=== PATIENT | female | born 1930 | race Caucasian/White ===

== ENCOUNTER 2017-04-19 12:53 | Inpatient (IN) | payer MEDICARE, OTHER ==
[~2017-04-19] VITALS: Ht 167.6 cm; Wt 54.5 kg
[2017-04-19 13:10] VITALS: BP 97/62
--- NOTE | 2017-04-19 13:27 | Consultation-Hospitalist ---
HPI History of Present Illness: HPI/Chief Complaint CC: Medical management following slow recovery after hip replacement surgery HPI: This is an 86-year-old white female who lives in [facility] but her daughter lives in [place] who underwent an uncomplicated elective hip replacement by Dr. Burks at [facility] on 04/15/17. I did see the patient in consultation that Thursday and she had an uncomplicated course except she had slow recovery. Her bowels are moving she is been maintained on her home medication and minimal medication for pain due to delirium that it causes. She did have slight hypotension with orthostasis the day after surgery and her hemoglobin did come back postoperatively low at 8.8 but she was placed on iron is currently doing well. Her primary care providers Dr. Adams in [facility]. Source: patient Exam Limitations: no limitations Date Seen 04/19/17 Attending Physician Eric Salas MD PCP No,Local Physician Referring Physician Date of Admission Apr 19, 2017 at 12:53 Home Medications & Allergies Home Medications Reviewed patient Home Medication Reconciliation Form Past [place]-Knfd[place]-Czsohg Hx Patient Social History Employed/Student: retired Smoking Status: Never a Smoker Recent Foreign Travel: No Contact w/other who traveled: No Surgeries Yes Abdominal (colon), Orthopedic Respiratory No Cardiovascular No Neurological No Genitourinary No Gastrointestinal Yes Diverticulosis Musculoskeletal Yes Arthritis Endocrine History of Endocrine Disorders: Yes Endocrine Disorders: Hypothyroidsim HEENT History of HEENT Disorders: No Cancer No Psychosocial History of Psychiatric Problem: No Review of Systems Constitutional: see HPI, weakness EENTM: no symptoms reported Respiratory: no symptoms reported Cardiovascular: no symptoms reported Gastrointestinal: no symptoms reported Genitourinary: no symptoms reported Musculoskeletal: joint pain Skin: no symptoms reported Psychiatric/Neurological: No Symptoms Reported All Other Systems Reviewed Negative Unless Noted: Yes Physical Exam Physical Exam Vital Signs Capillary Refill : General Appearance: No Apparent Distress, WD/WN, Chronically ill Eyes: Bilateral Eye Normal Inspection, Bilateral Eye PERRL HEENT: PERRL/EOMI, Normal ENT Inspection, Pharynx Normal Neck: Full Range of Motion, Normal Inspection, Non Tender, Supple, Carotid Bruit Respiratory: Chest Non Tender, Lungs Clear, Normal Breath Sounds, No Accessory Muscle Use, No Respiratory Distress Cardiovascular: Regular Rate, Rhythm, No Edema, No Gallop, No JVD, No Murmur, Normal Peripheral Pulses Gastrointestinal: Normal Bowel Sounds, No Organomegaly, No Pulsatile Mass, Non Tender, Soft Back: Normal Inspection, No CVA Tenderness, No Vertebral Tenderness Extremity: Normal Capillary Refill, Normal Inspection, Normal Range of Motion, Non Tender, No Calf Tenderness, No Pedal Edema Neurologic/Psychiatric: Alert, Oriented x3, No Motor/Sensory Deficits, Normal Mood/Affect Skin: Normal Color, Warm/Dry Lymphatic: No Adenopathy Assessment/Plan Admission Diagnosis Assessment: Slow recovery following uncomplicated hip replacement surgery by Dr. Burks POD # 4 Post operative anemia due to acute blood loss placed on PO iron Hypothyroidism History of diverticulosis status post partial resection in the past Delirium due to pain medication yesterday Assessment and Plan Plan: Minimized pain medication Reconcile all home meds PT/OT Fall risk Rehabilitation until recovery in order to return back to home in [facility] ENEIDA SUAZO DO Apr 19, 2017 13:27
[2017-04-19] MEDS ORDERED: HYDROcodone/APAP 5 MG/325 MG (LORTAB) TAB PO PRN (14:00)
[2017-04-19 16:30] VITALS: BP 97/62
[2017-04-19] MEDS: MELOXICAM 7.5 MG (MOBIC) TABLET PO SCH (20:44)
[2017-04-20 02:00] VITALS: BP 124/70
[2017-04-20] MEDS: MULTIVIT W/MINERALS TAB (THERAGRAN M) PO SCH (06:21)
[2017-04-20] MEDS: LEVOTHYROXINE 50 MCG (LEVOTHROID) TAB PO SCH (06:21)
[2017-04-20] MEDS: PANTOPRAZOLE 40 MG (PROTONIX) TAB PO SCH (06:21)
[2017-04-20] MEDS: MELOXICAM 7.5 MG (MOBIC) TABLET PO SCH ×2 (08:20→19:52)
[2017-04-20] MEDS: LACTOBACILLUS Acidoph/Bulgar (LACTINEX/FLORANEX) TAB PO SCH (08:20)
[2017-04-20] MEDS: FERROUS SULF 325 MG (IRON) TAB PO SCH (08:20)
[2017-04-20] MEDS: ASPIRIN E.C. 81 MG (ECOTRIN) TAB PO SCH (08:20)
[2017-04-20] MEDS: CALCIUM CARBONATE 500 MG (TUMS) TAB.CHEW PO SCH (08:20)
[2017-04-20] MEDS: ACETAMINOPHEN 500 MG TAB (TYLENOL) PO PRN ×2 (08:27→19:51)
--- NOTE | 2017-04-20 10:40 | Physical Therapy Evaluation ---
PT Evaluation-General Medical Diagnosis Admission Date Apr 19, 2017 at 12:53 Medical Diagnosis: L EMILY Onset Date: Apr 15, 2017 Therapy Diagnosis Therapy Diagnosis: Impaired strength, ROM, bed mobility, functional mobility Height/Weight Height (Feet): 5 Height (Inches): 6.00 Weight (Pounds): 119 Weight (Ounces): 1.0 Precautions Precautions/Isolations: Fall Prevention, Standard Precautions Anterior approach done for the EMILY Weight Bear Status Right Lower Extremity: Right Full Weight Bearing Left Lower Extremity: Left Full Weight Bearing Referral Physician: Josue Reason for Referral: Evaluation/Treatment Medical History Pertinent Medical History: Hypothroidism, OA Additional Medical History Diverticulitis Current History Pt underwent an elective left EMILY on 04/15/2017. Reviewed History: Yes Social History Home: Single Level Current Living Status: Alone Entry Into Home: Ramp PT Steps Into Home: 0 PT Steps Inside Home: 0 Once out of [facility], pt is planning to receive home therapy in [place] while she lives with her daughter. Prior/Core FIM Prior Level of Function Functional [place] Measure 0=Not Assessed/NA 4=Minimal Assistance 1=Total Assistance 5=Supervision or Setup 2=Maximal Assistance 6=Modified [place] 3=Moderate Assistance 7=Complete [place] Bed Mobility: 7 Transfers (B,C,W/C) (FIM): 7 Gait: 7 Locomotion: 7 Wheelchair Mobility: 7 Pt was active in the community and attended a wellness program regularly. PT Evaluation-Current Subjective Pt is sitting in chair pre tx with c/o of pain at L hip at 2/10 when not moving and 9/10 during initial steps. Pain Numeric Pain Scale: 9 Location: Left Location Body Site: Hip Pain Description: NONE Pt/Family Goals Move back to [place], [place] and become more mobile. Objective Patient Orientation: Person, Place, Time, Situation Problem Solving: Good Attachments: Other-See Comments Bandages for wound ROM/Strength ROM Lower Extremities Right WFL; Left WFL within hip precautions. Strenght Lower Extremities RLE: Grossly 4/5 LLE: Hip flexion 3/5, Knee flexion and extension 3/5, Ankle dorsiflexion 4/5 Integumentary/Posture Bowel Incontinence: No Bladder Incontinence: No Posture normal and symmetrical Neuromuscular (Tone, Coordination, Reflexes) NT Sensory Vision: Wears Glasses Hearing: Functional Sensation Right Lower Extremit: Intact Sensation Left Lower Extremity: Intact Sensation Lower Extremities Symmetrical Transfers Functional [place] Measure 0=Not Assessed/NA 4=Minimal Assistance 1=Total Assistance 5=Supervision or Setup 2=Maximal Assistance 6=Modified [place] 3=Moderate Assistance 7=Complete IndependenceIRFPAI Quality Coding Scale 6 Independent with activity with or without an assistive device 5 Patient requires set up or clean up by helper. Patient completes activity by themselves 4 Supervision or touching assist (CGA). [place] provide cues , steadying assist 3 The helper provides less than half the effort to complete the activity 2 The helper provides more than half the effort to complete the activity 1 Dependent. The helper does all the effort to complete an activity 7 Patient refused to complete or attempt activity 9 The patient did not perform the activity before the current illness or injury 88 Not attempted due to Medical conditions or safety concerns Transfers (B, C, W/C) (FIM): 4 Scootin Rollin Roll Left to Right (QC): 3 Supine to/from Sit: 4 Sit to/from Stand: 4 Sit to Lying (QC): 3 Lying to Sitting/Side of Bed(Q: 4 Sit to Stand (QC): 3 Chair/Wun-pi-Wwqip Xfer(QC): 3 Car Transfer (QC): 3 Pt requires manual handling of the LLE to abide by hip precautions as well as due to weakness and pain. During sit to stand transfer, pt LLE is moved in genu valgum causing hip adduction. Gait Does the Patient Walk?: Yes Mode of Locomotion: Walk Anticipated Mode of Locomotion: Walk Gait (FIM): 4 Distance (FIM): 3=150 ft Walk 10 feet (QC): 4 Walk 50 ft with 2 Turns(QC): 4 Walk 150 ft (QC): 4 Walking 10ft/uneven surface-QC: 4 Distance: 200 feet x1, 150 feet x2 Gait Level of Assist: 4 Gait Persons Needed: 1 Gait Assistive Device: FWW Comments/Gait Description Avoids weight bearing on the left with diminished WB during stance on the left. Slight rounded shoulders during gait. Wheelchair Training Does the Pt Use a Wheelchair?: No Stairs Stairs (FIM): 1 #of Steps: 1 Level of Assist: 4 1 Step (curb) (QC): 4 4 Steps (QC): 88 Assistive Device: Walker 12 Steps (QC): 88 Skilled cues for sequencing to go up/down the step. Balance Sitting Static: Good Sitting Dynamic: Good Standing Static: Good Standing Dynamic: Good Picking up an Object (QC): 88 Treatment Exercises in sitting include ankle pumps, heel slides, LAQ. Assessment/Needs Pt requires CGA during sit to stand transfer as well as for ambulation. Pt requires manual handling of the LLE during bed mobility. Pt demonstrates weakness throughout BLE. Pt will benefit from PT services to address the impairments mentioned. Rehab Potential: Good Equipment Needs FWW PT Short Term Goals Short Term Goals Time Frame: Apr 27, 2017 Transfers (B,C,W/C) (FIM): 5 Gait (FIM): 5 Gait Distance Comment: 200 feet Gait Level of Assist: 5 Gait Assistive Device: FWW Wheelchair (FIM): 9 Stairs (FIM): 5 # of Steps: 3 Stairs Level of Assist: 5 PT Fci Goals Data Designer Goals PT Fci Goals Time Frame: May 11, 2017 Transfers (B,C,W/C) (FIM): 6 Sit to Lying (QC): 6 Lying-Sitting on Side/Bed(QC): 6 Sit to Stand (QC): 6 Rollin Roll Left to Right (QC): 6 Chair/Eow-cc-Mqkii Xfer(QC): 6 Car Transfer (QC): 5 Does the Patient Walk: Yes Gait (FIM): 6 Gait distance (FIM): 3=150 ft Distance: 300 feet Walk 10 feet (QC): 6 Walk 10ft-Uneven Surface(QC): 5 Walk 50ft with 2 Turns (QC): 6 Walk 150 ft (QC): 6 Gait Level of Assist: 6 Gait Assistive Device: FWW Does the Pt use WC or Scooter?: No # of Steps: 4 1 Step (curb) (QC): 5 4 Steps (QC): 5 12 Steps (QC): 88 Stairs Level Of Assist: 6 Picking up an Object (QC): 5 PT Plan Problem List Problem List: Activity Tolerance, Functional Strength, Safety, Balance, Gait, Transfer, Bed Mobility, ROM Treatment/Plan Treatment Plan: Continue Plan of Care Treatment Plan: Bed Mobility, Concurrent Therapy, Education, Functional Activity Silvina, Functional Strength, Group Therapy, Gait, Safety, Therapeutic Exercise, Transfers Treatment Duration: May 11, 2017 Frequency: At least 5 of 7 days/Wk (IRF) Estimated Hrs Per Day: 1.5 hours per day Patient and/or Family Agrees t: Yes Safety Risks/Education Patient Education: Gait Training, Transfer Techniques, Steps, Reviewed Precautions, Correct Positioning, W/C Management, Disease Process, Safety Issues Teaching Recipient: Patient Teaching Methods: Demonstration, Discussion Response to Teaching: Verbalize Understanding, Return Demonstration, Reinforcement Needed Discharge Recommendations Therapy D/C Recommendations: Physical Therapy Home Care Time/GCodes Time In: 915 Time Out: 1030 Total Billed Treatment Time: 75 Total Billed Treatment 1 visit 45 min EVL 30 min FA JIMBO RAZO PT Apr 20, 2017 10:39
--- NOTE | 2017-04-20 12:57 | Occupational Therapy Eval ---
OT Evaluation-General/PLF Medical Diagnosis Admission Date Apr 19, 2017 at 12:53 Medical Diagnosis: L EMILY Onset Date: Apr 15, 2017 Therapy Diagnosis Therapy Diagnosis: decreased self care skills Height/Weight Height (Feet): 5 Height (Inches): 6.00 Weight (Pounds): 119 Weight (Ounces): 1.0 Precautions Precautions/Isolations: Fall Prevention, Standard Precautions Safety Interventions: None Medical History Pertinent Medical History: Arthritis, Hypothroidism, OA Additional Medical History diverticulosis, glaucoma Current History Pt s/p elective left EMILY Social History Home: Single Level Current Living Status: Alone Entry Into Home: Ramp Steps Into Home: 0 Steps Inside Home: 0 Pt lives in [place], [place], but at d/c with be staying with daughter in [place] for recovery. ADL-Prior Level of Function ADL PLOF Comments Pt reports being independent and active prior to surgery. Did not use any AD. DME/Equipment: Shower, Tub/Shower, Toilet/[address] Self: Yes OT Current Status Subjective Pt sitting in chair, agrees to therapy. Pt reports pain in left hip with movement, but does not rate. Mental Status/Objective Patient Orientation: Person, Place, Situation Current Glasses/Contacts: Yes Hearing Aids: No Dentures/Partials: No Hand Dominance: Right Upper Extremity ROM Grossly WFL Upper Extremity Coordination Intact Upper Extremity Sensation Intact per pt report ADL-Treatment ADL-Current Pt agrees to shower this morning. Sit to stand from chair with minimal assistance. Gait to restroom with FWW. Transfer to shower bench with minimal assistance and cues for safety. Pt doffed shirt with SBA. Minimal assistance to doff pants. Pt able to doff right sock, requires assist with left. Pt completed shower while seated on bench. Pt able to wash upper body, chip area, and bilateral upper legs. Stood with CGA while washing buttocks. Pt unable to wash left lower leg/foot without adaptive equipment. Don button up shirt with set up. Pt required assist to start underwear and pants over feet. Introduced to use of adaptive equipment for LE dressing. Stood with minimal assistance for balance during pant hike. Assist required for FRANCISCO hose. Pt assisted to don socks. Pt combed hair with set up. Declined to complete oral care at this time. Pt sitting in chair with needs met after session. Functional [place] Measure 0=Not Assessed/NA 4=Minimal Assistance 1=Total Assistance 5=Supervision or Setup 2=Maximal Assistance 6=Modified [place] 3=Moderate Assistance 7=Complete IndependenceIRFPAI Quality Coding Scale 6 Independent with activity with or without an assistive device 5 Patient requires set up or clean up by helper. Patient completes activity by themselves 4 Supervision or touching assist (CGA). [place] provide cues , steadying assist 3 The helper provides less than half the effort to complete the activity 2 The helper provides more than half the effort to complete the activity 1 Dependent. The helper does all the effort to complete an activity 7 Patient refused to complete or attempt activity 9 The patient did not perform the activity before the current illness or injury 88 Not attempted due to Medical conditions or safety concerns Grooming (FIM): 5 Bathing (FIM): 4 Shower/Bathe Self (QC): 3 Upper Body Dressing (FIM): 5 Upper Body Dressing (QC): 5 Lower Body Dressing (FIM): 3 Lower Body Dressing (QC): 3 On/Off Footwear (QC): 3 Toilet/Commode Transfer (FIM): 4 (per PT report) Toilet Transfer (QC): 3 Shower Transfer (FIM): 4 Education OT Patient Education: Rehab process Teaching Recipient: Patient Teaching Methods: Discussion Response to Teaching: Verbalize Understanding OT Short Term Goals Short Term Goals Time Frame: Apr 27, 2017 Lower Body Dressing(FIM): 5 Toileting(FIM): 5 Toilet/Commode Transfer(FIM): 5 1=Demonstrate adherence to instructed precautions during ADL tasks. 2=Patient will verbalize/demonstrate understanding of assistive devices/ modifications for ADL. 3=Patient will improve strength/tolerance for activity to enable patient to perform ADL's. OT Correction Goals Panel Assembler Goals Time Frame: May 11, 2017 Eating (FIM): 6 Eating (QC): 6 Groomin Oral Hygiene (QC): 6 Bathing(FIM): 5 Shower/Bathe Self (QC): 5 Upper Body Dressing(FIM): 6 Upper Body Dressing (QC): 6 Lower Body Dressing(FIM): 5 Lower Body Dressing (QC): 5 On/Off Footwear (QC): 5 Toileting(FIM): 6 Toileting Hygiene (QC): 6 Toilet/Commode Transfer(FIM): 6 Toilet/Commode Transfer (QC): 6 Shower Transfer(FIM): 5 Additional Goals: 1-Demonstrate ADL Tasks, 2-Verbalize Understanding, 3- ImproveStrength/Silvina 1=Demonstrate adherence to instructed precautions during ADL tasks. 2=Patient will verbalize/demonstrate understanding of assistive devices/ modifications for ADL. 3=Patient will improve strength/tolerance for activity to enable patient to perform ADL's. OT Education/Plan Problem List/Assessment Assessment: Decreased Activ Tolerance, Decreased UE Strength, Dependent Transfers, Impaired Self-Care Skills Pt s/p left EMILY with decreased mobility, ADL functioning, strength, and activity tolerance. Pt to benefit from skilled OT intervention for ADL training , transfers, strengthening, adaptive equipment training, and home safety education to maximize level of function and allow safe discharge. Discharge Recommendations Plan/Recommendations: Continue POC Treatment Plan/Plan of Care Treatment,Training & Education: Yes Patient would benefit from OT for education, treatment and training to promote independence in ADL's, mobility, safety and/or upper extremity function for ADL' s. Plan of Care: ADL Retraining, Functional Mobility, Group Exercise/Act as Ind, UE Funct Exercise/Act Treatment Duration: May 11, 2017 Frequency: At least 5 of 7 days/Wk (IRF) Estimated Hrs Per Day: 1.5 hours per day Agreement: Yes Rehab Potential: Good Time/GCodes Start Time: 10:30 Stop Time: 11:30 Total Time Billed (hr/min): 60 Billed Treatment Time 1 visit, EVL(15minutes), ADL(45minutes) FIDELINA NAVARRO OT Apr 20, 2017 12:57
--- NOTE | 2017-04-20 12:58 | PM&R Post Admission Assessment ---
Post Admission Physician Asses The preadmission screen agrees with the post admission assessment that the patient is a good candidate for inpatient rehabilitation. The patient will have a comprehensive program of inpatient rehabilitation with a goal of maximizing level of functional independence prior to discharge home with her daughter and HHC. The patient will have PT/OT ninety minutes per day , each discipline, five days a week for gait, strengthening, conditioning, balance, ADLs, any patient/family/caregiver training as necessary. Speech therapy to do cognitive assessment and treat as indicated. Rehabilitation nursing to assist with bowel, bladder, skin, wound care, medication administration, pain management. Dock Worker to assist with discharge planning, community reentry. SCD's for DVT prophylaxis. She appears to be well motivated to participate in three hours of therapy a day. She should be able to tolerate three hours of therapy a day from a medical and surgical standpoint. She should benefit from the three hours of therapy a day. She has a reasonable discharge plan, reasonable discharge rehabilitation goals and a supportive family. She has various comorbidities that need to be closely monitored with medications and treatments adjusted on a daily basis as needed. These include: [] Barriers to discharge for this patient who had been independent prior to this are for her to be modified independent to supervision for ADLs and mobility skills prior to discharge home with daughter and HHC, so as to lessen the burden of the caregivers. She is awidow and had been Independent prior to surgery but [facility] so she will be staying with her daughter upon discharge as she recovers further. Risks for this patient include: 1. Fall 2. Fracture 3. DVT 4. Pulmonary embolism 5. Wound infection 6. Skin breakdown 7. Contractures 8. Poorly controlled pain 9. Urinary retention 10. UTI 11. Respiratory infection 12. Aspiration 13. Worsening anemia Estimated Length of Stay: 14 days Prognosis: Rehab prognosis appears good for goal of discharge home with her daughter and HHC modified independent to supervision for ADLs and mobility skills. VALENCIA MCKINNEY MD Apr 20, 2017 12:58
[2017-04-20] MEDS ORDERED: DOCU-143 PO (14:14)
[2017-04-20] MEDS ORDERED: MULT-35 PO (14:14)
[2017-04-20] MEDS ORDERED: CINN500C2 PO (14:14)
[2017-04-20] MEDS ORDERED: FERR143T PO (14:14)
[2017-04-20] MEDS ORDERED: METH500T47 PO (14:14)
[2017-04-20] MEDS ORDERED: LEVO50TA6 PO (14:14)
[2017-04-20] MEDS ORDERED: NFBIOT1000 PO (14:14)
[2017-04-20] MEDS ORDERED: CALC500T3 PO (14:14)
[2017-04-20] MEDS ORDERED: ASPI-983 PO (14:14)
[2017-04-20] MEDS ORDERED: LACT1CAP72 PO (14:14)
--- NOTE | 2017-04-20 15:23 | Therapy Group Daily Note ---
Therapy Daily Group Note Exercises LE Seated Exercise, UE Exercise Other/Notes Pt. participated in group therapy this PM which consisted of introduction of self to the group and upper and lower extremity exercises x 10 reps of 12 exercises. Pt. read instructions for a specific exercise aloud and led the group in the exercise. Pt activitely participate with therapy and was interactive. She was given 1 specific exercise to lead, she was able to read the instruction and demonstrate to the group and then count out the repetitions for performing. Pt seemed to enjoy tthe social interaction. Pt ambulated to/ from group with FWW with CGA for safety; approximately 125 ft each direction. Pt was up in her chair post treatment with needs met. Start Time: 12:50 Stop Time: 13:50 Total Billed Treatment Time: 60 Total Billed Treatment visit GRP 60 JIMBO RAZO PT Apr 20, 2017 15:23
--- NOTE | 2017-04-20 16:50 | HISTORY AND PHYSICAL ---
DATE OF SERVICE: ADMISSION HISTORY AND PHYSICAL CHIEF COMPLAINT: Difficulty with walking. 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 Burks at [facility] on 04/15/2017. She has stairs in her apartment in [place] and decided to have surgery here, so she could stay with one of her five children as she recuperates. Postoperatively, she progressed slowly, had slight hypotension and orthostasis and some confusion, mild postoperative anemia,placed on iron replacement. She was referred to inpatient rehabilitation at [facility]. Currently, she is min assist for ambulation short distances with a front wheel walker, min assist for transfers and bed mobility. She is modified independent for eating, set up for grooming, min assist for upper body dressing, max assist for lower body dressing, mod assist for toilet transfers and toileting. PAST MEDICAL HISTORY: Hypothyroidism, arthritis. PAST SURGICAL HISTORY: No prior joint or spine surgeries. ALLERGIES: PENICILLIN, CIPRO, CLINDAMYCIN. FAMILY HISTORY: Noncontributory. SOCIAL HISTORY: She is a . She has lived in [place] for the past few years, [place]. Her is . She taught school for several years. She has 5 children. She has been independent prior to this. REVIEW OF SYSTEMS: Ten-point review of systems is significant for a rash, which the patient relates to receiving some penicillin at an outside facility. It is nonpruritic hip pain. MEDICATIONS: ASA 81 mg p.o. daily, Lactinex 1 tablet p.o. daily, calcium carbonate 1000 mg p.o. daily, ferrous sulfate 325 mg p.o. on Thursday, Thursday and Thursday, multivitamins with minerals 1 tablet p.o. daily, Protonix 40 mg p.o. daily, levothyroxine 50 mcg p.o. daily, Meloxicam 7.5 mg p.o. b.i.d., Colace 100 mg p.o. daily p.r.n. constipation, Lortab 5 two tablets p.o. q.4 hours p.r.n. moderate pain, Tylenol 500 mg p.o. q.6 hours p.r.n. mild pain. PHYSICAL EXAMINATION: GENERAL: Significant for a pleasant female appearing her stated age, sitting in a chair in no acute distress. VITAL SIGNS: Blood pressure 124/70, respirations 16, pulse of 92 and regular, she is afebrile, O2 sat 98% on room air. HEENT: Vision, speech and hearing grossly intact. No oral lesion is noted. NECK: Supple without mass. HEART: Regular rhythm. CHEST: Clear. ABDOMEN: Soft, nontender, bowel sounds present. EXTREMITIES: No lower leg edema, no calf tenderness. MUSCULOSKELETAL: She has functional active range of motion in both upper extremities and right lower extremity. Left lower extremity limited due to recent surgery. NEUROLOGIC: Cognition intact. Sensation grossly intact to touch. Strength in both upper limbs 4/5, right lower extremity 4/5, left lower extremity hip flexion 3/5 as well as knee flexion and extension, ankle dorsiflexion 4/5. IMPRESSION: 1. Ambulatory dysfunction secondary to degenerative joint disease of the left hip status post left total hip replacement at [facility], Dr. Burks on 04/15/2017. 2. Postoperative anemia, on replacement. 3. Postoperative mild hypotension, orthostasis resolved. 4. Hypothyroidism, on replacement. 5. Truncal rash nonpruritic PLAN: The patient will have a comprehensive program with inpatient rehabilitation with a goal of maximizing level of functional independence prior to discharge home with her daughter and home health care. The patient will have PT, OT 90 minutes per day each discipline, 5 days a week for gait, strengthening, conditioning ADLs, any patient and family caregiver training necessary, adaptive equipment and training as necessary. Rehabilitation nursing to assist with bowel, bladder, skin care, wound care, medication administration, pain management. Social service to assist with discharge planning, community reentry. Follow up with Dr. Smith in lieu of her PCP in [place], [place]. I appreciate Dr. Smith's consult. Follow up with Dr. Burks pfelipe.Topical care for rash as needed. ESTIMATED LENGTH OF STAY: Two weeks. PROGNOSIS: Rehab prognosis appears good for goal of discharging home with daughter, modified independent supervision for ADLs and mobility skills. DIET: Regular. CODE STATUS: Full code. Job ID: [id number] DocumentID: [id number] Dictated Date: 04/20/2017 13:17:07 General Lithographic Worker Date: 04/20/2017 15:44:56 Dictated By: VALENCIA MCKINNEY MD [facility]
[2017-04-20 17:33] VITALS: BP 103/64
[2017-04-21] MEDS: PANTOPRAZOLE 40 MG (PROTONIX) TAB PO SCH (05:14)
[2017-04-21] MEDS: LEVOTHYROXINE 50 MCG (LEVOTHROID) TAB PO SCH (05:14)
[2017-04-21] MEDS: MULTIVIT W/MINERALS TAB (THERAGRAN M) PO SCH (05:14)
[2017-04-21 06:19] VITALS: BP 145/70
[2017-04-21] MEDS: MELOXICAM 7.5 MG (MOBIC) TABLET PO SCH ×2 (08:17→20:36)
[2017-04-21] MEDS: CALCIUM CARBONATE 500 MG (TUMS) TAB.CHEW PO SCH (08:17)
[2017-04-21] MEDS: ASPIRIN E.C. 81 MG (ECOTRIN) TAB PO SCH (08:17)
[2017-04-21] MEDS: LACTOBACILLUS Acidoph/Bulgar (LACTINEX/FLORANEX) TAB PO SCH (08:17)
[2017-04-21] MEDS: ACETAMINOPHEN 500 MG TAB (TYLENOL) PO PRN ×2 (08:18→18:24)
--- NOTE | 2017-04-21 09:19 | ST Cognitive Linguistic Eval ---
Speech Evaluation-General Medical Diagnosis L EMILY Onset Date: Apr 15, 2017 Therapy Diagnosis Therapy Diagnosis: Cognitive Linguistic Skills WNL Precautions Precautions/Isolations: Fall Prevention, Standard Precautions Referral Referring Physician: Dr. Eric Salas Reason for Referral: Evaluation/Treatment Cognitive Evaluation Medical History Pertinent Medical History: Hypothroidism, OA Reviewed History: Yes Social History Current Living Status: Alone Speech PLF-Current Status Prior Level of Function The patient denied prior challenges with speech, language, or cognition. Subjective The patient was recently admitted to [facility] following a left total hip replacement. The patient greeted the clinician appropriately and was agreeable to participation in the cognitive evaluation. Language Eval: Auditory Comprehends Simple Yes/No Ques: Functional Indent/Objects Multiple Gomez: Functional Ident/Pics in Multiple Gomez: Functional Follows 1-Step Commands: Functional Follows Complex Directions: Functional Follows General Conversations: Functional Language Eval: Verbal Language Completes Spontaneous Greeting: Functional Produces Auto, Serial Info: Functional Imitates Simple Words/Phrases: Functional Word Finding: Functional Requests Basic Needs: Functional States Basic Personal Info: Functional Expresses Complex Ideas: Functional Cognitive Patient Orientation The patient was independently oriented to self, location, month, day of week, and year. Objective Cognitive Domain Attention: WNL Memory: WNL Problem Solving: Functional Objective Impression The patient demonstrated cognitive linguistic skills WNL and appropriate for completion of ADL's. Communication/Social Cognition Comprehension: 6 Expression: 6 Social Interaction: 6 Problem Solvin Memory: 6 Speech Patient Assess Expression of Ideas/Wants: Expression (4) Understanding Vebal Content: Understands (4) Brief Interview-Mental Status: Yes Repetition of Three Words: Three (3) Temporal Orientation: Year: Correct (3) Temporal Orientation: Month: Accurate within 5 days(2) Temporal Orientation: Day: Correct (1) Recall : Wear to say "Sock": Yes,after cueing (1) Recall : Color: Yes, no cue required (2) Recall : Bed: Yes, no cue required (2) Speech-Plan Treatment Plan Speech Therapy Treatment Plan: Discontinue ST Evaluation, only. Frequency: Modified Program (IRF) Estimated Hrs Per Day: Other Rehab Potential: Good Safety Risks/Education Teaching Recipient: Patient Teaching Methods: Discussion Response to Teaching: Verbalize Understanding Education Topics Provided: Results, Recommendations, Plan of Care Time Speech Therapy Time In: 09:00 Speech Therapy Time Out: 09:15 Total Billed Time: 15 Billed Treatment Time 1, BETHNDISAEL PRITCHARD Apr 21, 2017 09:19
--- NOTE | 2017-04-21 10:29 | Physical Therapy Daily Note ---
PT Daily Note-Current Subjective Agreeable to PT. "I slept like a rock last night." Pain Numeric Pain Scale: 5-Moderate Pain Location: Left Location Body Site: Hip Pain Description: Ache Comment: with activity; at rest, she rates at a 2 Mental Status Patient Orientation: Person, Place, Time, Situation Transfers Functional [place] Measure 0=Not Assessed/NA 4=Minimal Assistance 1=Total Assistance 5=Supervision or Setup 2=Maximal Assistance 6=Modified [place] 3=Moderate Assistance 7=Complete IndependenceIRFPAI Quality Coding Scale 6 Independent with activity with or without an assistive device 5 Patient requires set up or clean up by helper. Patient completes activity by themselves 4 Supervision or touching assist (CGA). [place] provide cues , steadying assist 3 The helper provides less than half the effort to complete the activity 2 The helper provides more than half the effort to complete the activity 1 Dependent. The helper does all the effort to complete an activity 7 Patient refused to complete or attempt activity 9 The patient did not perform the activity before the current illness or injury 88 Not attempted due to Medical conditions or safety concerns Transfers (B, C, W/C) (FIM): 4 Supine to/from Sit: 4 Sit to/from Stand: 4 (skilled cues for hand placement) Sit to Lying (QC): 4 (assist with the left leg) Sit to Stand (QC): 4 Chair/[id number] Xfer(QC): 4 Sit to stand transfer improved during course of treatment to a SBA level. Sit to stand repetition transfer x 5. Weight Bearing Right Lower Extremity: Right Full Weight Bearing Left Lower Extremity: Left Full Weight Bearing Gait Training Does the Patient Walk?: Yes Gait (FIM): 4 Distance (FIM): 3=150 ft Distance: 150 ft x 2; 50 ft x 3 Gait Assistive Device: FWW slow gait with diminished stance time on the left due to some pain with WB Stair Training Stairs (FIM): 2 #of Steps: 4 4 Steps (QC): 4 Stairs: Pattern: Step to SB-CGA on stairs with skills cues on sequencing with education on the rationale behind the sequence. Exercises Supine Ex: Bridging, Ankle pumps, Quad Set, Heel Slides, Short Arc Quads, Hip abd/add Supine Reps: 12 (to facilitate LE strength and ROM for gait, transfers and bed mobility.) Seated Therapy Exercises: Ankle pumps, Long arc quads Seated Reps: 12 Treatments Pt also toileted; required SB-CGA with toilet transfer and able to perform pericare without assist. Pt up in chair post treatment with needs met. Assessment Current Status: Good Progress Transfers improving and gait distance increased. Did well on the stairs today. PT Short Term Goals Short Term Goals Time Frame: Apr 27, 2017 Gait (FIM): 5 Gait Distance Comment: 200 feet Gait Level of Assist: 5 Gait Assistive Device: FWW Wheelchair (FIM): 9 Stairs (FIM): 5 # of Steps: 3 Stairs Level of Assist: 5 PT Mcfp Goals Mcfp Goals PT Mcfp Goals Time Frame: May 11, 2017 Transfers (B,C,W/C) (FIM): 6 Sit to Lying (QC): 6 Lying-Sitting on Side/Bed(QC): 6 Sit to Stand (QC): 6 Rollin Roll Left to Right (QC): 6 Chair/Cmo-qw-Khhvb Xfer(QC): 6 Car Transfer (QC): 5 Does the Patient Walk: Yes Gait (FIM): 6 Gait distance (FIM): 3=150 ft Distance: 300 feet Walk 10 feet (QC): 6 Walk 10ft-Uneven Surface(QC): 5 Walk 50ft with 2 Turns (QC): 6 Walk 150 ft (QC): 6 Gait Level of Assist: 6 Gait Assistive Device: FWW Does the Pt use WC or Scooter?: No # of Steps: 4 1 Step (curb) (QC): 5 4 Steps (QC): 5 12 Steps (QC): 88 Stairs Level Of Assist: 6 Picking up an Object (QC): 5 PT Plan Problem List Problem List: Activity Tolerance, Functional Strength, Safety, Balance, Gait, Transfer, Bed Mobility Treatment/Plan Treatment Plan: Continue Plan of Care Treatment Plan: Bed Mobility, Concurrent Therapy, Education, Functional Activity Silvina, Functional Strength, Group Therapy, Gait, Safety, Therapeutic Exercise, Transfers Treatment Duration: May 11, 2017 Frequency: At least 5 of 7 days/Wk (IRF) Estimated Hrs Per Day: 1.5 hours per day Patient and/or Family Agrees t: Yes Safety Risks/Education Patient Education: Transfer Techniques, Steps Teaching Recipient: Patient Teaching Methods: Demonstration, Discussion Response to Teaching: Return Demonstration Discharge Recommendations Therapy D/C Recommendations: Physical Therapy Home Care Time/GCodes Time In: 915 Time Out: 1016 Total Billed Treatment Time: 61 Total Billed Treatment visit GT 28 EX 22 FA 11 JIMBO RAZO PT Apr 21, 2017 10:29
--- NOTE | 2017-04-21 10:58 | PM & R (SOAP) Progress Note ---
Subjective Time Seen by Provider: 08:10 Subjective/Events-last exam Patient was seen in her room this AM Patient Min assist for transfers Progressing well with therapies Review of Systems Musculoskeletal: leg pain Objective Exam Last Set of Vital Signs Vital Signs Date Time Temp Pulse Resp B/P (MAP) Pulse Ox O2 Delivery O2 Flow Rate FiO2 04/21/17 06:19 97.8 92 17 145/70 (95) 95 Room Air Capillary Refill : Less Than 3 Seconds I&O Intake and Output 04/20/17 23:59 Intake Total 1280 ml Balance 1280 ml Intake Oral 1280 ml # Voids 7 # Bowel Movements 2 General: Alert, Oriented X3, Cooperative, No Acute Distress HEENT: Atraumatic, PERRLA, EOMI, Mucous Memb Moist/[place] Neck: Supple Lungs: Clear to Auscultation Heart: Regular Rate Abdomen: Normal Bowel Sounds, Soft, No Tenderness Extremities: No Edema Neuro: Other (Good strength except left hip Sensation and Cognition grossly intact) Assessment/Plan Assessment DJD left hip s/p Left THR DR Burks WBAT Postop anemia on replacement Hypothyroidism on replacement Truncal rash non pruritic Plan Continue PT/OT Team Conference tomorrow 04-22-17 VALENCIA MCKINNEY MD Apr 21, 2017 10:58
--- NOTE | 2017-04-21 11:04 | Individualized Plan of Care ---
Individualized Plan of Care Rehab Nursing IPOC Order Admission Date Apr 19, 2017 at 12:53 Current Orders Orders Admission (Physician Order) (04/19/17 13:48) Code/Resuscitation (04/19/17 13:48) Initiate Admission Nursing Pro .admission (04/19/17 13:48) Isolation Central Supply Req (04/19/17 13:48) Aspirin Enteric Coated Tablet (Ecotrin T (04/20/17 09:00) Levothyroxine Tablet (Synthroid Tablet) (04/20/17 06:30) Lactobacillus/Bulgaricus Tab (Lactinex (04/20/17 09:00) Docusate Sodium Capsule (Colace Capsule) (04/19/17 14:00) Therapeutic Multivitamin Tab (Vitamins, (04/20/17 07:00) Calcium Carbonate Chew Tablet (Antacid C (04/20/17 09:00) Meloxicam Tablet (Mobic Tablet) (04/19/17 21:00) Pantoprazole Tablet (Protonix Tablet) (04/20/17 07:00) Hydrocodone/Apap 5/325 Tablet (Lortab 5 (04/19/17 14:00) Acetaminophen Tablet (Tylenol Tablet) (04/19/17 14:00) Physical Therapy [place]der (04/19/17 13:49) Occupational Therapy Order (04/19/17 13:49) Consult Physician (04/19/17 13:49) General/Regular (04/19/17 Dinner) Ambulate TID (04/19/17 18:57) Sequential Compression Device 08,20 (04/19/17 18:57) Dvt/Vte Risk - Notifiy Physici (04/19/17 18:57) Ferrous Sulfate Tablet (Feosol Tablet) (04/20/17 09:00) Follow-Up Appointment (04/19/17 19:58) Nursing Communication (Patient (04/19/17 19:59) Nursing Communication (Patient (04/19/17 20:01) Request For Cognitive Services (04/20/17 10:24) Patient Visit (04/20/17 ) Pt Eval Low Complexity (04/20/17 ) Functional Activities, Ea 15 (04/20/17 ) Patient Visit (04/20/17 ) Therapeutic, Group (04/20/17 ) Patient Visit (04/21/17 ) Speech Sound Lang Comp (04/21/17 ) Other Nursing Orders: Monitor for postop urinary retention and constipation PT IPOC Problem List: Activity Tolerance, Functional Strength, Safety, Balance, Gait, Transfer, Bed Mobility Treatment Plan: Continue Plan of Care Bed Mobility, Concurrent Therapy, Education, Functional Activity Silvina, Functional Strength, Group Therapy, Gait, Safety, Therapeutic Exercise, Transfers Treatment Duration: May 11, 2017 Frequency: At least 5 of 7 days/Wk (IRF) Estimated Hrs Per Day: 1.5 hours per day OT IPOC Problems: Decreased Activ Tolerance, Decreased UE Strength, Dependent Transfers , Impaired Self-Care Skills OT Treatment, Training and Edu: Yes OT Problems Pt s/p left EMILY with decreased mobility, ADL functioning, strength, and activity tolerance. Pt to benefit from skilled OT intervention for ADL training , transfers, strengthening, adaptive equipment training, and home safety education to maximize level of function and allow safe discharge. Plan of Care: ADL Retraining, Functional Mobility, Group Exercise/Act as Ind, UE Funct Exercise/Act Treatment Duration: May 11, 2017 Frequency: At least 5 of 7 days/Wk (IRF) Estimated Hrs Per Day: 1.[address] IPOC Speech Therapy Treatment Plan: Discontinue ST Treatment Duration: Apr 21, 2017 Frequency: Modified Program (IRF) Estimated Hrs Per Day: Other Analytics Analyst/Case Mgmt Analytics Analyst/Case Managemen: Discharge Planning, Patient/Family Counseling Physician IPOC Medical Issues being managed closely and that require the 24 hour availability of a physician:postop anemia psstop hypotension pain management Medical Issues: Bowel/Bladder Function, DVT Prophylaxis, Falls Precautions, Fluid/Electrolyte/Nutrition Balance, Infection Protection, Pain Management, Wound Care, Other (List) (as per above) Brief Synthesis of Preadmission Screen, Post-Admission Evaluation, and Therapy Evaluations: 86 yo female who had been living alone independently who had THR for painful DJD refractory to conservative care,Referred to IRU for ongoing care and therapies Lives in [place] but has stairs there and came here to be near her daughter upon discharge where she will go to live with temporarily upon discharge from Rehab [facility] CODE 08.51 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
--- NOTE | 2017-04-21 11:38 | Occupational Ther Daily Note ---
OT Current Status-Daily Note Subjective Pt sitting in chair, agrees to treatment. Pt reports 6/10 pain in left hip. Mental Status/Objective Functional [place] Measure 0=Not Assessed/NA 4=Minimal Assistance 1=Total Assistance 5=Supervision or Setup 2=Maximal Assistance 6=Modified [place] 3=Moderate Assistance 7=Complete [place] ADL-Treatment Pt declined to bathe today, but agrees to change clothes. Pt doffed/donned shirt with set up. Pt doffed underwear and pants with minimal assistance, uses dressing stick to push off over feet. Pt instructed in use of adaptive equipment for LE dressing. Pt donned pants with minimal assistance using home day care provider. Stood with CGA for pant hike. Pt donned two pairs of pants, but stated they were too tight, so she put pajama pants back on. Pt donned socks with SBA using sock aid. Increased time for dressing tasks. Sit to stand with CGA. Gait to restroom with FWW. Pt transferred to [facility] over toilet with SBA. Pt able to manage toileting hygiene, requires CGA for balance during clothing management. Stood at sink to wash hands and brush teeth with SBA. Pt combed hair after set up while seated in chair. Pt fatigues with activity and requires occasional rest breaks throughout treatment. Pt sitting in chair with needs met after session. Functional [place] Measure 0=Not Assessed/NA 4=Minimal Assistance 1=Total Assistance 5=Supervision or Setup 2=Maximal Assistance 6=Modified [place] 3=Moderate Assistance 7=Complete IndependenceIRFPAI Quality Coding Scale 6 Independent with activity with or without an assistive device 5 Patient requires set up or clean up by helper. Patient completes activity by themselves 4 Supervision or touching assist (CGA). [place] provide cues , steadying assist 3 The helper provides less than half the effort to complete the activity 2 The helper provides more than half the effort to complete the activity 1 Dependent. The helper does all the effort to complete an activity 7 Patient refused to complete or attempt activity 9 The patient did not perform the activity before the current illness or injury 88 Not attempted due to Medical conditions or safety concerns Grooming (FIM): 5 Oral Hygiene (QC): 4 Upper Body (FIM): 5 Upper Body Dressing (QC): 5 Lower Body Dressing (FIM): 4 Lower Body Dressing (QC): 3 On/Off Footwear (QC): 4 Toileting (FIM): 4 (CGA) Toileting Hygiene (QC): 4 (CGA) Toilet/Commode Transfer (FIM): 4 (CGA) Toilet Transfer (QC): 4 (CGA) Education OT Patient Education: Modified ADL techniques Teaching Recipient: Patient Teaching Methods: Demonstration, Discussion Response to Teaching: Return Demonstration OT Short Term Goals Short Term Goals Time Frame: Apr 27, 2017 Lower Body Dressing(FIM): 5 Toileting(FIM): 5 Toilet/Commode Transfer(FIM): 5 1=Demonstrate adherence to instructed precautions during ADL tasks. 2=Patient will verbalize/demonstrate understanding of assistive devices/ modifications for ADL. 3=Patient will improve strength/tolerance for activity to enable patient to perform ADL's. OT Ware Finisher Goals Ware Finisher Goals Time Frame: May 11, 2017 Eating (FIM): 6 Eating (QC): 6 Groomin Oral Hygiene (QC): 6 Bathing(FIM): 5 Shower/Bathe Self (QC): 5 Upper Body Dressing(FIM): 6 Upper Body Dressing (QC): 6 Lower Body Dressing(FIM): 5 Lower Body Dressing (QC): 5 On/Off Footwear (QC): 5 Toileting(FIM): 6 Toileting Hygiene (QC): 6 Toilet/Commode Transfer(FIM): 6 Toilet/Commode Transfer (QC): 6 Shower Transfer(FIM): 5 Additional Goals: 1-Demonstrate ADL Tasks, 2-Verbalize Understanding, 3- ImproveStrength/Silvina 1=Demonstrate adherence to instructed precautions during ADL tasks. 2=Patient will verbalize/demonstrate understanding of assistive devices/ modifications for ADL. 3=Patient will improve strength/tolerance for activity to enable patient to perform ADL's. OT Education/Plan Discharge Recommendations Plan/Recommendations: Continue POC Treatment Plan/Plan of Care Patient would benefit from OT for education, treatment and training to promote independence in ADL's, mobility, safety and/or upper extremity function for ADL' s. Plan of Care: ADL Retraining, Functional Mobility, Group Exercise/Act as Ind, UE Funct Exercise/Act Treatment Duration: May 11, 2017 Frequency: At least 5 of 7 days/Wk (IRF) Estimated Hrs Per Day: 1.5 hours per day Agreement: Yes Rehab Potential: Good Time/GCodes Start Time: 08:00 Stop Time: 09:00 Total Time Billed (hr/min): 60 Billed Treatment Time 1 visit, ADLx4(60minutes) FIDELINA NAVARRO OT Apr 21, 2017 11:38
--- NOTE | 2017-04-21 14:09 | Physical Therapy Daily Note ---
PT Daily Note-Current Subjective Patient c/o "stiffness" of left thigh. Agrees to PT. Pain Numeric Pain Scale: 5-Moderate Pain Location: Left Location Body Site: Thigh Pain Description: Ache, Acute Mental Status Patient Orientation: Normal For Age Transfers Functional [place] Measure 0=Not Assessed/NA 4=Minimal Assistance 1=Total Assistance 5=Supervision or Setup 2=Maximal Assistance 6=Modified [place] 3=Moderate Assistance 7=Complete IndependenceIRFPAI Quality Coding Scale 6 Independent with activity with or without an assistive device 5 Patient requires set up or clean up by helper. Patient completes activity by themselves 4 Supervision or touching assist (CGA). [place] provide cues , steadying assist 3 The helper provides less than half the effort to complete the activity 2 The helper provides more than half the effort to complete the activity 1 Dependent. The helper does all the effort to complete an activity 7 Patient refused to complete or attempt activity 9 The patient did not perform the activity before the current illness or injury 88 Not attempted due to Medical conditions or safety concerns Transfers (B, C, W/C) (FIM): 5 Scootin Sit to/from Stand: 5 Sit to Stand (QC): 5 Weight Bearing Right Lower Extremity: Right Full Weight Bearing Left Lower Extremity: Left Full Weight Bearing Gait Training Does the Patient Walk?: Yes Gait (FIM): 5 Distance (FIM): 3=150 ft Distance: 150' x 3 Walk 10 feet (QC): 5 Walk 50 ft with 2 Turns(QC): 5 Walk 150 ft (QC): 5 Gait Level of Assist: 5 Gait Assistive Device: FWW decreased step length, antalgic/encouraged patient to perform reciprocal pattern with gait and increase leroy Exercises Seated Therapy Exercises: Ankle pumps, Long arc quads Seated Reps: 20 Standing: Heel/toe raises Standing Reps: 20 Assessment Patient tolerated treatment well and is up in recliner with needs met. PT will increase activity as tolerated by patient. Education with patient on "normalizing" gait pattern and performing exercises PRN independently to improve strength and mobility. PT Short Term Goals Short Term Goals Time Frame: Apr 27, 2017 Gait (FIM): 5 Gait Distance Comment: 200 feet Gait Level of Assist: 5 Gait Assistive Device: FWW Wheelchair (FIM): 9 Stairs (FIM): 5 # of Steps: 3 Stairs Level of Assist: 5 PT Jail Goals Parts Processor Goals PT Parts Processor Goals Time Frame: May 11, 2017 Transfers (B,C,W/C) (FIM): 6 Sit to Lying (QC): 6 Lying-Sitting on Side/Bed(QC): 6 Sit to Stand (QC): 6 Rollin Roll Left to Right (QC): 6 Chair/Obf-fd-Xhlua Xfer(QC): 6 Car Transfer (QC): 5 Does the Patient Walk: Yes Gait (FIM): 6 Gait distance (FIM): 3=150 ft Distance: 300 feet Walk 10 feet (QC): 6 Walk 10ft-Uneven Surface(QC): 5 Walk 50ft with 2 Turns (QC): 6 Walk 150 ft (QC): 6 Gait Level of Assist: 6 Gait Assistive Device: FWW Does the Pt use WC or Scooter?: No # of Steps: 4 1 Step (curb) (QC): 5 4 Steps (QC): 5 12 Steps (QC): 88 Stairs Level Of Assist: 6 Picking up an Object (QC): 5 PT Plan Treatment/Plan Treatment Plan: Continue Plan of Care Treatment Plan: Bed Mobility, Concurrent Therapy, Education, Functional Activity Silvina, Functional Strength, Group Therapy, Gait, Safety, Therapeutic Exercise, Transfers Treatment Duration: May 11, 2017 Frequency: At least 5 of 7 days/Wk (IRF) Estimated Hrs Per Day: 1.5 hours per day Patient and/or Family Agrees t: Yes Time/GCodes Time In: 1330 Time Out: 1400 Total Billed Treatment Time: 30 Total Billed Treatment 1 visit EX 14 min GT 16 min KENDRA COLEMAN PT Apr 21, 2017 14:09
--- NOTE | 2017-04-21 14:42 | Occupational Ther Daily Note ---
OT Current Status-Daily Note Subjective Pt sitting in chair, agrees to treatment. Mental Status/Objective Functional [place] Measure 0=Not Assessed/NA 4=Minimal Assistance 1=Total Assistance 5=Supervision or Setup 2=Maximal Assistance 6=Modified [place] 3=Moderate Assistance 7=Complete [place] ADL-Treatment Functional [place] Measure 0=Not Assessed/NA 4=Minimal Assistance 1=Total Assistance 5=Supervision or Setup 2=Maximal Assistance 6=Modified [place] 3=Moderate Assistance 7=Complete IndependenceIRFPAI Quality Coding Scale 6 Independent with activity with or without an assistive device 5 Patient requires set up or clean up by helper. Patient completes activity by themselves 4 Supervision or touching assist (CGA). [place] provide cues , steadying assist 3 The helper provides less than half the effort to complete the activity 2 The helper provides more than half the effort to complete the activity 1 Dependent. The helper does all the effort to complete an activity 7 Patient refused to complete or attempt activity 9 The patient did not perform the activity before the current illness or injury 88 Not attempted due to Medical conditions or safety concerns Other Treatment Pt sit to stand with SBA. Gait to therapy gym with FWW. Arm bike [id number] to increase overall strength and activity tolerance needed for functional tasks. Pt completed task with moderate resistance and steady pace. No rest breaks needed. Pt performed bilateral UE exercises to increase strength needed for ADLs and transfers. Pt performed shoulder flexion, forward press, biceps curls, and wrist flex/ext x10 reps with 1# dowel catina. Rest breaks between exercises. Pt in gym for PT treatment after session. OT Short Term Goals Short Term Goals Time Frame: Apr 27, 2017 Lower Body Dressing(FIM): 5 Toileting(FIM): 5 Toilet/Commode Transfer(FIM): 5 1=Demonstrate adherence to instructed precautions during ADL tasks. 2=Patient will verbalize/demonstrate understanding of assistive devices/ modifications for ADL. 3=Patient will improve strength/tolerance for activity to enable patient to perform ADL's. OT Pbx Manager Goals Pbx Manager Goals Time Frame: May 11, 2017 Eating (FIM): 6 Eating (QC): 6 Groomin Oral Hygiene (QC): 6 Bathing(FIM): 5 Shower/Bathe Self (QC): 5 Upper Body Dressing(FIM): 6 Upper Body Dressing (QC): 6 Lower Body Dressing(FIM): 5 Lower Body Dressing (QC): 5 On/Off Footwear (QC): 5 Toileting(FIM): 6 Toileting Hygiene (QC): 6 Toilet/Commode Transfer(FIM): 6 Toilet/Commode Transfer (QC): 6 Shower Transfer(FIM): 5 Additional Goals: 1-Demonstrate ADL Tasks, 2-Verbalize Understanding, 3- ImproveStrength/Silvina 1=Demonstrate adherence to instructed precautions during ADL tasks. 2=Patient will verbalize/demonstrate understanding of assistive devices/ modifications for ADL. 3=Patient will improve strength/tolerance for activity to enable patient to perform ADL's. OT Education/Plan Discharge Recommendations Plan/Recommendations: Continue POC Treatment Plan/Plan of Care Patient would benefit from OT for education, treatment and training to promote independence in ADL's, mobility, safety and/or upper extremity function for ADL' s. Plan of Care: ADL Retraining, Functional Mobility, Group Exercise/Act as Ind, UE Funct Exercise/Act Treatment Duration: May 11, 2017 Frequency: At least 5 of 7 days/Wk (IRF) Estimated Hrs Per Day: 1.5 hours per day Agreement: Yes Rehab Potential: Good Time/GCodes Start Time: 13:00 Stop Time: 13:30 Total Time Billed (hr/min): 30 Billed Treatment Time 1 visit, EXx2(30minutes) FIDELINA NAVARRO OT Apr 21, 2017 14:42
[2017-04-21 18:29] VITALS: BP 152/71
[2017-04-22 04:52] VITALS: BP 152/79
[2017-04-22] MEDS: LEVOTHYROXINE 50 MCG (LEVOTHROID) TAB PO SCH (05:35)
[2017-04-22] MEDS: PANTOPRAZOLE 40 MG (PROTONIX) TAB PO SCH (05:35)
[2017-04-22] MEDS: MULTIVIT W/MINERALS TAB (THERAGRAN M) PO SCH (05:35)
[2017-04-22] MEDS: ASPIRIN E.C. 81 MG (ECOTRIN) TAB PO SCH (08:07)
[2017-04-22] MEDS: MELOXICAM 7.5 MG (MOBIC) TABLET PO SCH ×2 (08:07→20:21)
[2017-04-22] MEDS: LACTOBACILLUS Acidoph/Bulgar (LACTINEX/FLORANEX) TAB PO SCH (08:07)
[2017-04-22] MEDS: CALCIUM CARBONATE 500 MG (TUMS) TAB.CHEW PO SCH (08:07)
[2017-04-22] MEDS: FERROUS SULF 325 MG (IRON) TAB PO SCH (08:08)
[2017-04-22] MEDS: ACETAMINOPHEN 500 MG TAB (TYLENOL) PO PRN ×2 (08:11→18:29)
--- NOTE | 2017-04-22 08:33 | PM & R (SOAP) Progress Note ---
Subjective Time Seen by Provider: 07:50 Subjective/Events-last exam Patient was seen in her room this AM Patient SBA for transfers Progressing well with therapies.Patient concerned re mild swelling in feet reassured Randall hose to be reapplied Objective Exam Last Set of Vital Signs Vital Signs Date Time Temp Pulse Resp B/P (MAP) Pulse Ox O2 Delivery O2 Flow Rate FiO2 04/22/17 04:52 98.0 93 16 152/79 (103) 98 Room Air Capillary Refill : Less Than 3 Seconds I&O Intake and Output 04/21/17 23:59 Intake Total 1220 ml Balance 1220 ml Intake Oral 1220 ml # Voids 11 # Bowel Movements 1 General: Alert, Oriented X3, Cooperative, No Acute Distress HEENT: Atraumatic, PERRLA, EOMI, Mucous Memb Moist/[place] Neck: Supple Lungs: Clear to Auscultation Heart: Regular Rate Abdomen: Normal Bowel Sounds, Soft, No Tenderness Extremities: No Edema Neuro: Other (Good strength except left hip Sensation and Cognition grossly intact) Assessment/Plan Assessment DJD left hip s/p Left THR DR Burks WBAT Postop anemia on replacement Hypothyroidism on replacement Truncal rash non pruritic Mild pedal edema Plan Continue PT/OT Team Conference later today-See report for full functional update and POC and VALENCIA WEINER MD Apr 22, 2017 08:33
--- NOTE | 2017-04-22 11:20 | Occupational Ther Daily Note ---
OT Current Status-Daily Note Subjective No pain reported. Appearance Pt. up in chair. Declines showering. Agrees to spongebathe. Mental Status/Objective Patient Orientation: Person, Place, Time Functional [place] Measure 0=Not Assessed/NA 4=Minimal Assistance 1=Total Assistance 5=Supervision or Setup 2=Maximal Assistance 6=Modified [place] 3=Moderate Assistance 7=Complete [place] ADL-Treatment Functional [place] Measure 0=Not Assessed/NA 4=Minimal Assistance 1=Total Assistance 5=Supervision or Setup 2=Maximal Assistance 6=Modified [place] 3=Moderate Assistance 7=Complete IndependenceIRFPAI Quality Coding Scale 6 Independent with activity with or without an assistive device 5 Patient requires set up or clean up by helper. Patient completes activity by themselves 4 Supervision or touching assist (CGA). [place] provide cues , steadying assist 3 The helper provides less than half the effort to complete the activity 2 The helper provides more than half the effort to complete the activity 1 Dependent. The helper does all the effort to complete an activity 7 Patient refused to complete or attempt activity 9 The patient did not perform the activity before the current illness or injury 88 Not attempted due to Medical conditions or safety concerns Bathing (FIM): 4 (Pt. required CGA in stance to wash chip area. Pt. able to bathe feet with LH sponge.) Shower/Bathe Self (QC): 4 Upper Body (FIM): 5 Upper Body Dressing (QC): 5 Lower Body Dressing (FIM): 3 (OT donned FRANCISCO hose. Pt. utilized AE for all other clothing. Pt. required mod assist to don underwear/pants over feet with DS. CGA in stance to hike over hips. Pt. able to put socks on sock aide, but required min assist to remove the sock aide from behind her legs after donning.) Lower Body Dressing (QC): 3 On/Off Footwear (QC): 4 Toileting (FIM): 4 (CGA in stance to cleanse chip area.) Toileting Hygiene (QC): 4 Transfers (B, C, W/C) (FIM): 4 Toilet/Commode Transfer (FIM): 4 Toilet Transfer (QC): 4 Education OT Patient Education: Correct positioning, Modified ADL techniques, Progress toward Goal/Update tx plan, Purpose of tx/functional activities, Reviewed precautions, Rehab process, Transfer techniques, Use of adapted equipment Teaching Recipient: Patient Teaching Methods: Demonstration, Discussion Response to Teaching: Verbalize Understanding, Return Demonstration OT Short Term Goals Short Term Goals Time Frame: Apr 27, 2017 Lower Body Dressing(FIM): 5 Toileting(FIM): 5 Toilet/Commode Transfer(FIM): 5 1=Demonstrate adherence to instructed precautions during ADL tasks. 2=Patient will verbalize/demonstrate understanding of assistive devices/ modifications for ADL. 3=Patient will improve strength/tolerance for activity to enable patient to perform ADL's. OT Computer Programming Manager Goals Detention Goals Time Frame: May 11, 2017 Eating (FIM): 6 Eating (QC): 6 Groomin Oral Hygiene (QC): 6 Bathing(FIM): 5 Shower/Bathe Self (QC): 5 Upper Body Dressing(FIM): 6 Upper Body Dressing (QC): 6 Lower Body Dressing(FIM): 5 Lower Body Dressing (QC): 5 On/Off Footwear (QC): 5 Toileting(FIM): 6 Toileting Hygiene (QC): 6 Toilet/Commode Transfer(FIM): 6 Toilet/Commode Transfer (QC): 6 Shower Transfer(FIM): 5 Additional Goals: 1-Demonstrate ADL Tasks, 2-Verbalize Understanding, 3- ImproveStrength/Silv[place] 1=Demonstrate adherence to instructed precautions during ADL tasks. 2=Patient will verbalize/demonstrate understanding of assistive devices/ modifications for ADL. 3=Patient will improve strength/tolerance for activity to enable patient to perform ADL's. OT Education/Plan Problem List/Assessment Assessment: Decreased Activ Tolerance, Dependent Transfers, Impaired I ADL's, Impaired Self-Care Skills Discharge Recommendations Plan/Recommendations: Continue POC Therapy D/C Recommendations: Home w/ Family Support, Occupational Therapy Home Care Equpiment Recommendations-D/C: Hip Kit Treatment Plan/Plan of Care Treatment,Training & Education: Yes Patient would benefit from OT for education, treatment and training to promote independence in ADL's, mobility, safety and/or upper extremity function for ADL' s. Plan of Care: ADL Retraining, Functional Mobility, Group Exercise/Act as Ind, UE Funct Exercise/Act Treatment Duration: May 11, 2017 Frequency: At least 5 of 7 days/Wk (IRF) Estimated Hrs Per Day: 1.5 hours per day Agreement: Yes Rehab Potential: Good Time/GCodes Start Time: 08:00 Stop Time: 09:00 Total Time Billed (hr/min): 60 Billed Treatment Time 1,ADL x 4 JULIUS CARUSO OT Apr 22, 2017 11:20
--- NOTE | 2017-04-22 12:01 | Physical Therapy Daily Note ---
PT Daily Note-Current Subjective Agreeable to PT. Reports her leg is painful with bending her knee. Pain Numeric Pain Scale: 7 Location: Left Location Body Site: Hip (thigh) Pain Description: Ache Mental Status Patient Orientation: Person, Place, Time, Situation Transfers Functional [place] Measure 0=Not Assessed/NA 4=Minimal Assistance 1=Total Assistance 5=Supervision or Setup 2=Maximal Assistance 6=Modified [place] 3=Moderate Assistance 7=Complete IndependenceIRFPAI Quality Coding Scale 6 Independent with activity with or without an assistive device 5 Patient requires set up or clean up by helper. Patient completes activity by themselves 4 Supervision or touching assist (CGA). [place] provide cues , steadying assist 3 The helper provides less than half the effort to complete the activity 2 The helper provides more than half the effort to complete the activity 1 Dependent. The helper does all the effort to complete an activity 7 Patient refused to complete or attempt activity 9 The patient did not perform the activity before the current illness or injury 88 Not attempted due to Medical conditions or safety concerns Transfers (B, C, W/C) (FIM): 4 Weight Bearing Right Lower Extremity: Right Full Weight Bearing Left Lower Extremity: Left Full Weight Bearing Gait Training Does the Patient Walk?: Yes Distance (FIM): 3=150 ft Distance: 150 ft x 2 50 ft x 2 Gait Assistive Device: FWW slow gait and decreased step length right with decreased WB phase on the left. Exercises Seated Therapy Exercises: Ankle pumps, Long arc quads, Hamstring Curls Seated Reps: 15 (to promote quad strength, facilitate LE circulation and promote flexibility of the left LE witha ctivity.) NuStep Minutes: 10 (to encourage decreased stiffness in the left leg. ) Treatments sit to stand x 5 reps with focus on sequencing. Toileted with SBA for all. In chair post treatment with needs. met. Assessment Current Status: Good Progress Pt tends to hold her left LE in a "stiff" position and I feel this may be causing her pain or limited her functional movement. Today' s treatment focused on her moving this leg more and working to relax it and trust that her muscles can move her leg and reduce the "guarding" of her left LE. PT Short Term Goals Short Term Goals Time Frame: Apr 27, 2017 Gait (FIM): 5 Gait Distance Comment: 200 feet Gait Level of Assist: 5 Gait Assistive Device: FWW Wheelchair (FIM): 9 Stairs (FIM): 5 # of Steps: 3 Stairs Level of Assist: 5 PT Utility Systems Repairer Operator Goals Utility Systems Repairer Operator Goals PT Utility Systems Repairer Operator Goals Time Frame: May 11, 2017 Transfers (B,C,W/C) (FIM): 6 Sit to Lying (QC): 6 Lying-Sitting on Side/Bed(QC): 6 Sit to Stand (QC): 6 Rollin Roll Left to Right (QC): 6 Chair/Oit-xu-Azrmp Xfer(QC): 6 Car Transfer (QC): 5 Does the Patient Walk: Yes Gait (FIM): 6 Gait distance (FIM): 3=150 ft Distance: 300 feet Walk 10 feet (QC): 6 Walk 10ft-Uneven Surface(QC): 5 Walk 50ft with 2 Turns (QC): 6 Walk 150 ft (QC): 6 Gait Level of Assist: 6 Gait Assistive Device: FWW Does the Pt use WC or Scooter?: No # of Steps: 4 1 Step (curb) (QC): 5 4 Steps (QC): 5 12 Steps (QC): 88 Stairs Level Of Assist: 6 Picking up an Object (QC): 5 PT Plan Problem List Problem List: Activity Tolerance, Functional Strength, Safety Treatment/Plan Treatment Plan: Continue Plan of Care Treatment Plan: Bed Mobility, Concurrent Therapy, Education, Functional Activity Silvina, Functional Strength, Group Therapy, Gait, Safety, Therapeutic Exercise, Transfers Treatment Duration: May 11, 2017 Frequency: At least 5 of 7 days/Wk (IRF) Estimated Hrs Per Day: 1.5 hours per day Patient and/or Family Agrees t: Yes Time/GCodes Time In: 900 Time Out: 1000 Total Billed Treatment Time: 60 Total Billed Treatment visit GT 25 EX 35 JIMBO RAZO PT Apr 22, 2017 12:01
--- NOTE | 2017-04-22 13:14 | Progress Note-Hospitalist ---
Progress Note HPI/CC on Admission CC: Medical management following slow recovery after hip replacement surgery HPI: This is an 86-year-old white female who lives in [facility] but her daughter lives in [place] who underwent an uncomplicated elective hip replacement by Dr. Burks at [facility] on 04/15/17. I did see the patient in consultation that Thursday and she had an uncomplicated course except she had slow recovery. Her bowels are moving she is been maintained on her home medication and minimal medication for pain due to delirium that it causes. She did have slight hypotension with orthostasis the day after surgery and her hemoglobin did come back postoperatively low at 8.8 but she was placed on iron is currently doing well. Her primary care providers Dr. Adams in [facility]. Progress Notes/Assess & Plan Date Seen 04/22/17 Time Seen by Provider: 13:00 Admission Dx/Process Assessment: Slow recovery following uncomplicated hip replacement surgery by Dr. Burks POD # 4 Post operative anemia due to acute blood loss placed on PO iron Hypothyroidism History of diverticulosis status post partial resection in the past Delirium due to pain medication yesterday Diagonsis/Assessment & Plan Patient doing well Working with physical therapy Getting stronger every day AFVSS, [place], O x 3, frail, thin RRR, CTAB No edema Assessment: Slow recovery following uncomplicated hip replacement surgery by Dr. Burks POD # 7 Post operative anemia due to acute blood loss placed on PO iron Hypothyroidism History of diverticulosis status post partial resection in the past Delirium due to pain medication yesterday Plan: Minimized pain medication Reconcile all home meds PT/OT Fall risk Rehabilitation until recovery in order to return back to home in [facility] ENEIDA SUAZO DO Apr 22, 2017 13:14
--- NOTE | 2017-04-22 15:02 | Therapy Group Daily Note ---
Therapy Daily Group Note Patient Education Topic Home Safety Exercises UE Exercise Other/Notes Pt ambulated with CGA using FWW to OT/PT group in ARU commons area. Group consisted of introductions (name, place, dislike of one uncommon item), socialization, seated UE exercises, ARU expectations, safety sign bingo with education and safe vs. unsafe education. Pt was able to appropriately introduce self to peers. Pt contributed to discussions throughout group that was relevant to topics discussed. Pt completed UE exercises without difficulty. Education of ARU expectations and pt able to give one example of ARU routine. Pt able to complete matching, manipulating token during safety bingo activity. Education for safety throughout group then pt was asked to give examples of what unsafe situations are and what to do to make them safe. After therapy, pt lying in bed. Call light/phone in reach. All needs met in room. Start Time: 13:00 Stop Time: 14:15 Total Billed Treatment Time: 75 Total Billed Treatment 1-GRP JIMBO AN Apr 22, 2017 15:02
[2017-04-22 18:32] VITALS: BP 127/73
[2017-04-23 04:57] VITALS: BP 153/70
[2017-04-23] MEDS: MULTIVIT W/MINERALS TAB (THERAGRAN M) PO SCH (05:54)
[2017-04-23] MEDS: LEVOTHYROXINE 50 MCG (LEVOTHROID) TAB PO SCH (05:54)
[2017-04-23] MEDS: PANTOPRAZOLE 40 MG (PROTONIX) TAB PO SCH (05:54)
[2017-04-23] MEDS: ACETAMINOPHEN 500 MG TAB (TYLENOL) PO PRN ×2 (05:54→20:26)
[2017-04-23] MEDS: MELOXICAM 7.5 MG (MOBIC) TABLET PO SCH ×2 (09:00→20:26)
[2017-04-23] MEDS: LACTOBACILLUS Acidoph/Bulgar (LACTINEX/FLORANEX) TAB PO SCH (09:00)
[2017-04-23] MEDS: ASPIRIN E.C. 81 MG (ECOTRIN) TAB PO SCH (09:01)
[2017-04-23] MEDS: CALCIUM CARBONATE 500 MG (TUMS) TAB.CHEW PO SCH (09:02)
--- NOTE | 2017-04-23 11:07 | Physical Therapy Daily Note ---
PT Daily Note-Current Subjective Agreeable to PT. "How do I relax my leg? You said I was keeping it too stiff. " Pt took pain meds at start of treatment. Pain Numeric Pain Scale: 7 Location: Left Location Body Site: Hip Pain Description: Ache Mental Status Patient Orientation: Person, Place, Time, Situation Transfers Functional [place] Measure 0=Not Assessed/NA 4=Minimal Assistance 1=Total Assistance 5=Supervision or Setup 2=Maximal Assistance 6=Modified [place] 3=Moderate Assistance 7=Complete IndependenceIRFPAI Quality Coding Scale 6 Independent with activity with or without an assistive device 5 Patient requires set up or clean up by helper. Patient completes activity by themselves 4 Supervision or touching assist (CGA). [place] provide cues , steadying assist 3 The helper provides less than half the effort to complete the activity 2 The helper provides more than half the effort to complete the activity 1 Dependent. The helper does all the effort to complete an activity 7 Patient refused to complete or attempt activity 9 The patient did not perform the activity before the current illness or injury 88 Not attempted due to Medical conditions or safety concerns Pt is SBA with all sit to stand tranfers with intermittent cues/skilled reminders for hand placement with stand to sit transfer. Pt is SBA with toileting as well and toilet transfer. Worked on sit to from supine x 2 reps with education and instruction on getting her left leg in and out of bed; ultimately, pt needs min assist to get her left leg in and out of bed. She tends to hold it very stiff with limited knee flexion or ability to move it up/down or in/out. She relies heavily on her UE' s to move her left leg in bed. Weight Bearing Right Lower Extremity: Right Full Weight Bearing Left Lower Extremity: Left Full Weight Bearing Gait Training Does the Patient Walk?: Yes Gait (FIM): 5 Distance (FIM): 3=150 ft Distance: 150 ft x 4 reps Gait Assistive Device: FWW Exercises Supine Ex: Bridging, Ankle pumps, Quad Set, Glut sets, Heel Slides, Short Arc Quads, Hip abd/add Supine Reps: 10 (performed exercises while pt reviewing pics of HEP for practice of exercises on her home in prep for DC. ) LE ther ex performed for strength training to improve bed mobility; pt guards left LE and does not want to move it much, spent much time with the exercises promoting full ROM during the activity to encourage her to move her leg more. Assessment Current Status: Good Progress Pt's bed mobility improved with repetition. Pt taking a stronger pain med, hopefully this will ease her pain and improve her mobility. PT Short Term Goals Short Term Goals Time Frame: Apr 27, 2017 Gait (FIM): 5 Gait Distance Comment: 200 feet Gait Level of Assist: 5 Gait Assistive Device: FWW Wheelchair (FIM): 9 Stairs (FIM): 5 # of Steps: 3 Stairs Level of Assist: 5 PT Grain Elevator Motor Starter Goals Halfway Goals PT Grain Elevator Motor Starter Goals Time Frame: May 11, 2017 Transfers (B,C,W/C) (FIM): 6 Sit to Lying (QC): 6 Lying-Sitting on Side/Bed(QC): 6 Sit to Stand (QC): 6 Rollin Roll Left to Right (QC): 6 Chair/Ypj-ml-Cqvaj Xfer(QC): 6 Car Transfer (QC): 5 Does the Patient Walk: Yes Gait (FIM): 6 Gait distance (FIM): 3=150 ft Distance: 300 feet Walk 10 feet (QC): 6 Walk 10ft-Uneven Surface(QC): 5 Walk 50ft with 2 Turns (QC): 6 Walk 150 ft (QC): 6 Gait Level of Assist: 6 Gait Assistive Device: FWW Does the Pt use WC or Scooter?: No # of Steps: 4 1 Step (curb) (QC): 5 4 Steps (QC): 5 12 Steps (QC): 88 Stairs Level Of Assist: 6 Picking up an Object (QC): 5 PT Plan Problem List Problem List: Activity Tolerance, Functional Strength, Safety Treatment/Plan Treatment Plan: Continue Plan of Care Treatment Plan: Bed Mobility, Concurrent Therapy, Education, Functional Activity Silvina, Functional Strength, Group Therapy, Gait, Safety, Therapeutic Exercise, Transfers Treatment Duration: May 11, 2017 Frequency: At least 5 of 7 days/Wk (IRF) Estimated Hrs Per Day: 1.5 hours per day Patient and/or Family Agrees t: Yes Safety Risks/Education Patient Education: Transfer Techniques Teaching Recipient: Patient Teaching Methods: Demonstration, Discussion Response to Teaching: Return Demonstration, Reinforcement Needed Time/GCodes Time In: 900 Time Out: 1000 Total Billed Treatment Time: 60 Total Billed Treatment visit EX 30 GT 15 FA 15 JIMBO RAZO PT Apr 23, 2017 11:07
--- NOTE | 2017-04-23 11:42 | PM & R (SOAP) Progress Note ---
Subjective Time Seen by Provider: 10:35 Subjective/Events-last exam Patient was seen in her room this AM Patient SBA for transfers.TRamadol ordered for enhanced pain control with effect Review of Systems Musculoskeletal: leg pain Objective Exam Last Set of Vital Signs Vital Signs Date Time Temp Pulse Resp B/P (MAP) Pulse Ox O2 Delivery O2 Flow Rate FiO2 04/23/17 04:57 97.1 96 18 153/70 (97) 95 Room Air Capillary Refill : Less Than 3 Seconds I&O Intake and Output 04/23/17 00:00 Intake Total 1090 ml Balance 1090 ml Intake Oral 1090 ml # Voids 12 # Bowel Movements 2 General: Alert, Oriented X3, Cooperative, No Acute Distress HEENT: Atraumatic, PERRLA, EOMI, Mucous Memb Moist/[place] Neck: Supple Lungs: Clear to Auscultation Heart: Regular Rate Abdomen: Normal Bowel Sounds, Soft, No Tenderness Extremities: No Edema Neuro: Other (Good strength except left hip Sensation and Cognition grossly intact) Assessment/Plan Assessment DJD left hip s/p Left THR DR Bukrs WBAT Postop anemia on replacement Hypothyroidism on replacement Truncal rash non pruritic Mild pedal edema Plan Continue PT/OT Team Conference held yesterday-See report for full functional update and POC and ELOS Discharge set tentatively for 04-28-17 to home with family and HHC Adjust pain meds as needed VALENCIA MCKINNEY MD Apr 23, 2017 11:42
--- NOTE | 2017-04-23 15:42 | Occupational Ther Daily Note ---
OT Current Status-Daily Note Subjective No pain reported. Appearance Pt. agreed to shower this date. Mental Status/Objective Patient Orientation: Person, Place Functional [place] Measure 0=Not Assessed/NA 4=Minimal Assistance 1=Total Assistance 5=Supervision or Setup 2=Maximal Assistance 6=Modified [place] 3=Moderate Assistance 7=Complete [place] ADL-Treatment Functional [place] Measure 0=Not Assessed/NA 4=Minimal Assistance 1=Total Assistance 5=Supervision or Setup 2=Maximal Assistance 6=Modified [place] 3=Moderate Assistance 7=Complete IndependenceIRFPAI Quality Coding Scale 6 Independent with activity with or without an assistive device 5 Patient requires set up or clean up by helper. Patient completes activity by themselves 4 Supervision or touching assist (CGA). [place] provide cues , steadying assist 3 The helper provides less than half the effort to complete the activity 2 The helper provides more than half the effort to complete the activity 1 Dependent. The helper does all the effort to complete an activity 7 Patient refused to complete or attempt activity 9 The patient did not perform the activity before the current illness or injury 88 Not attempted due to Medical conditions or safety concerns Bathing (FIM): 4 (Pt. required assist to wash her feet.) Shower/Bathe Self (QC): 4 Upper Body (FIM): 5 Upper Body Dressing (QC): 4 Lower Body Dressing (FIM): 3 (Pt. utilized AE but required mod assist overall, due to size of bathroom.) Lower Body Dressing (QC): 3 On/Off Footwear (QC): 2 (Pt. required max assist to don slipper socks due to having difficulty with sock aide.) Toileting (FIM): 4 (CGA in stance to pull up and down pants.) Toileting Hygiene (QC): 4 Transfers (B, C, W/C) (FIM): 4 Toilet/Commode Transfer (FIM): 4 Toilet Transfer (QC): 4 Shower Transfer(FIM): 4 (CGA) Other Treatment Pt. utilized AE during shower task with increased time needed. Pt. had some increased difficulty due to size of shower. Education OT Patient Education: Correct positioning, Modified ADL techniques, Progress toward Goal/Update tx plan, Purpose of tx/functional activities, Reviewed precautions, Rehab process, Transfer techniques, Use of adapted equipment Teaching Recipient: Patient Teaching Methods: Demonstration Response to Teaching: Verbalize Understanding, Return Demonstration OT Short Term Goals Short Term Goals Time Frame: Apr 27, 2017 Lower Body Dressing(FIM): 5 Toileting(FIM): 5 Toilet/Commode Transfer(FIM): 5 1=Demonstrate adherence to instructed precautions during ADL tasks. 2=Patient will verbalize/demonstrate understanding of assistive devices/ modifications for ADL. 3=Patient will improve strength/tolerance for activity to enable patient to perform ADL's. OT Ruling Technician Goals Senior Care Goals Time Frame: May 11, 2017 Eating (FIM): 6 Eating (QC): 6 Groomin Oral Hygiene (QC): 6 Bathing(FIM): 5 Shower/Bathe Self (QC): 5 Upper Body Dressing(FIM): 6 Upper Body Dressing (QC): 6 Lower Body Dressing(FIM): 5 Lower Body Dressing (QC): 5 On/Off Footwear (QC): 5 Toileting(FIM): 6 Toileting Hygiene (QC): 6 Toilet/Commode Transfer(FIM): 6 Toilet/Commode Transfer (QC): 6 Shower Transfer(FIM): 5 Additional Goals: 1-Demonstrate ADL Tasks, 2-Verbalize Understanding, 3- ImproveStrength/[place] 1=Demonstrate adherence to instructed precautions during ADL tasks. 2=Patient will verbalize/demonstrate understanding of assistive devices/ modifications for ADL. 3=Patient will improve strength/tolerance for activity to enable patient to perform ADL's. OT Education/Plan Problem List/Assessment Assessment: Decreased Activ Tolerance, Impaired I ADL's, Impaired Self-Care Skills Discharge Recommendations Plan/Recommendations: Continue POC Therapy D/C Recommendations: Home w/ Family Support, Occupational Therapy Home Care Equpiment Recommendations-D/C: Hip Kit Treatment Plan/Plan of Care Treatment,Training & Education: Yes Patient would benefit from OT for education, treatment and training to promote independence in ADL's, mobility, safety and/or upper extremity function for ADL' s. Plan of Care: ADL Retraining, Functional Mobility, Group Exercise/Act as Ind, UE Funct Exercise/Act Treatment Duration: May 11, 2017 Frequency: At least 5 of 7 days/Wk (IRF) Estimated Hrs Per Day: 1.5 hours per day Agreement: Yes Rehab Potential: Good Time/GCodes Start Time: 08:00 Stop Time: 09:00 Total Time Billed (hr/min): 60 Billed Treatment Time 1, ADL x 4 JULIUS CARUSO OT Apr 23, 2017 15:42
--- NOTE | 2017-04-23 15:46 | Occupational Ther Daily Note ---
OT Current Status-Daily Note Subjective Pt. does not report pain, but does request pain pill, as she will be having OT and then PT. Appearance Pt. is in chair in room. Agrees to treatment. Mental Status/Objective Patient Orientation: Person, Place Functional [place] Measure 0=Not Assessed/NA 4=Minimal Assistance 1=Total Assistance 5=Supervision or Setup 2=Maximal Assistance 6=Modified [place] 3=Moderate Assistance 7=Complete [place] ADL-Treatment Functional [place] Measure 0=Not Assessed/NA 4=Minimal Assistance 1=Total Assistance 5=Supervision or Setup 2=Maximal Assistance 6=Modified [place] 3=Moderate Assistance 7=Complete IndependenceIRFPAI Quality Coding Scale 6 Independent with activity with or without an assistive device 5 Patient requires set up or clean up by helper. Patient completes activity by themselves 4 Supervision or touching assist (CGA). [place] provide cues , steadying assist 3 The helper provides less than half the effort to complete the activity 2 The helper provides more than half the effort to complete the activity 1 Dependent. The helper does all the effort to complete an activity 7 Patient refused to complete or attempt activity 9 The patient did not perform the activity before the current illness or injury 88 Not attempted due to Medical conditions or safety concerns Transfers (B, C, W/C) (FIM): 5 (SBA with use of walker.) Other Treatment Pt. agreed to treatment. Ambulated with SBA with walker to dining area. Required rest break and sat for several minutes. Stood again with SBA and ambulated to therapy gym. Completed 10 minutes on armbike to increase overall strength and independence with daily tasks. Tolerated this well. Pt. states that she feels "worn out" from previous therapy sessions. Ambulated back to room. All needs met in room. Education OT Patient Education: Correct positioning, Modified ADL techniques, Progress toward Goal/Update tx plan, Purpose of tx/functional activities, Reviewed precautions, Rehab process, Transfer techniques Teaching Recipient: Patient Teaching Methods: Demonstration, Discussion Response to Teaching: Verbalize Understanding, Return Demonstration OT Short Term Goals Short Term Goals Time Frame: Apr 27, 2017 Lower Body Dressing(FIM): 5 Toileting(FIM): 5 Toilet/Commode Transfer(FIM): 5 1=Demonstrate adherence to instructed precautions during ADL tasks. 2=Patient will verbalize/demonstrate understanding of assistive devices/ modifications for ADL. 3=Patient will improve strength/tolerance for activity to enable patient to perform ADL's. OT Usp Goals Usp Goals Time Frame: May 11, 2017 Eating (FIM): 6 Eating (QC): 6 Groomin Oral Hygiene (QC): 6 Bathing(FIM): 5 Shower/Bathe Self (QC): 5 Upper Body Dressing(FIM): 6 Upper Body Dressing (QC): 6 Lower Body Dressing(FIM): 5 Lower Body Dressing (QC): 5 On/Off Footwear (QC): 5 Toileting(FIM): 6 Toileting Hygiene (QC): 6 Toilet/Commode Transfer(FIM): 6 Toilet/Commode Transfer (QC): 6 Shower Transfer(FIM): 5 Additional Goals: 1-Demonstrate ADL Tasks, 2-Verbalize Understanding, 3- ImproveStrength/[place] 1=Demonstrate adherence to instructed precautions during ADL tasks. 2=Patient will verbalize/demonstrate understanding of assistive devices/ modifications for ADL. 3=Patient will improve strength/tolerance for activity to enable patient to perform ADL's. OT Education/Plan Problem List/Assessment Assessment: Decreased Activ Tolerance, Impaired I ADL's, Impaired Self-Care Skills Discharge Recommendations Plan/Recommendations: Continue POC Therapy D/C Recommendations: Home w/ Family Support, Occupational Therapy Home Care Equpiment Recommendations-D/C: Hip Kit Treatment Plan/Plan of Care Treatment,Training & Education: Yes Patient would benefit from OT for education, treatment and training to promote independence in ADL's, mobility, safety and/or upper extremity function for ADL' s. Plan of Care: ADL Retraining, Functional Mobility, Group Exercise/Act as Ind, UE Funct Exercise/Act Treatment Duration: May 11, 2017 Frequency: At least 5 of 7 days/Wk (IRF) Estimated Hrs Per Day: 1.5 hours per day Agreement: Yes Rehab Potential: Good Time/GCodes Start Time: 13:40 Stop Time: 14:10 Total Time Billed (hr/min): 30 Billed Treatment Time 1, EX x 2 JULIUS CARUSO OT Apr 23, 2017 15:46
--- NOTE | 2017-04-23 15:49 | Physical Therapy Daily Note ---
PT Daily Note-Current Subjective Pt. states her morning Rx made her really tired. States she has finally gained some relief from pain with a new med "that starts with a T" Describes her own home as well as her daughters arrangement for her when she DCs to go stay with her. c/o her real pain at this time is in her left toes and met heads 2-4th toes Pain Numeric Pain Scale: 3 Location: Left Location Body Site: Toe Pain Description: Pressure Mental Status Patient Orientation: Normal For Age Transfers Functional [place] Measure 0=Not Assessed/NA 4=Minimal Assistance 1=Total Assistance 5=Supervision or Setup 2=Maximal Assistance 6=Modified [place] 3=Moderate Assistance 7=Complete IndependenceIRFPAI Quality Coding Scale 6 Independent with activity with or without an assistive device 5 Patient requires set up or clean up by helper. Patient completes activity by themselves 4 Supervision or touching assist (CGA). [place] provide cues , steadying assist 3 The helper provides less than half the effort to complete the activity 2 The helper provides more than half the effort to complete the activity 1 Dependent. The helper does all the effort to complete an activity 7 Patient refused to complete or attempt activity 9 The patient did not perform the activity before the current illness or injury 88 Not attempted due to Medical conditions or safety concerns emphasis on sup to sit and sit to sup TRFs . Pt. approached bed initiating RLE first, then Left. Pt. states her daughter can rearrange to make this possible if she has not conquered approaching with her LLE at DC. Weight Bearing Right Lower Extremity: Right Full Weight Bearing Left Lower Extremity: Left Full Weight Bearing Gait Training Gait Assistive Device: FWW [id number] slow, SBA to CGA Exercises Supine Ex: Ankle pumps, Quad Set, Glut sets, Heel Slides, Hip abd/add Supine Reps: 12 Assessment Current Status: Good Progress edema bilat feet and lower LEs. at end of Rx pt. in recliner and educated regarding dependent edema and attempting to lay flat at night with LEs slightly elevated and heels free for skin/heel protection PT Short Term Goals Short Term Goals Time Frame: Apr 27, 2017 Gait (FIM): 5 Gait Distance Comment: 200 feet Gait Level of Assist: 5 Gait Assistive Device: FWW Wheelchair (FIM): 9 Stairs (FIM): 5 # of Steps: 3 Stairs Level of Assist: 5 PT Garment Folder Goals Chcf Goals PT Chcf Goals Time Frame: May 11, 2017 Transfers (B,C,W/C) (FIM): 6 Sit to Lying (QC): 6 Lying-Sitting on Side/Bed(QC): 6 Sit to Stand (QC): 6 Rollin Roll Left to Right (QC): 6 Chair/Tqr-zj-Grzhg Xfer(QC): 6 Car Transfer (QC): 5 Does the Patient Walk: Yes Gait (FIM): 6 Gait distance (FIM): 3=150 ft Distance: 300 feet Walk 10 feet (QC): 6 Walk 10ft-Uneven Surface(QC): 5 Walk 50ft with 2 Turns (QC): 6 Walk 150 ft (QC): 6 Gait Level of Assist: 6 Gait Assistive Device: FWW Does the Pt use WC or Scooter?: No # of Steps: 4 1 Step (curb) (QC): 5 4 Steps (QC): 5 12 Steps (QC): 88 Stairs Level Of Assist: 6 Picking up an Object (QC): 5 PT Plan Treatment/Plan Treatment Plan: Continue Plan of Care Treatment Plan: Bed Mobility, Concurrent Therapy, Education, Functional Activity [place], Functional Strength, Group Therapy, Gait, Safety, Therapeutic Exercise, Transfers Treatment Duration: May 11, 2017 Frequency: At least 5 of 7 days/Wk (IRF) Estimated Hrs Per Day: 1.5 hours per day Patient and/or Family Agrees t: Yes Safety Risks/Education Patient Education: Gait Training, Transfer Techniques Teaching Recipient: Patient Teaching Methods: Demonstration, Discussion Response to Teaching: Verbalize Understanding, Return Demonstration, Reinforcement Needed Time/GCodes Time In: 1505 Time Out: 1540 Total Billed Treatment Time: 35 Total Billed Treatment 1,GT15,FA20 G Codes Necessary: No [facility] Apr 23, 2017 15:49
[2017-04-23 18:19] VITALS: BP 117/68
[2017-04-23] MEDS ORDERED: ONDANSETRON 4 MG (ZOFRAN) ORAL DISSOLVE TAB PO PRN (21:45)
[2017-04-24] MEDS: PANTOPRAZOLE 40 MG (PROTONIX) TAB PO SCH (06:07)
[2017-04-24] MEDS: ACETAMINOPHEN 500 MG TAB (TYLENOL) PO PRN (06:07)
[2017-04-24] MEDS: MULTIVIT W/MINERALS TAB (THERAGRAN M) PO SCH (06:07)
[2017-04-24] MEDS: LEVOTHYROXINE 50 MCG (LEVOTHROID) TAB PO SCH (06:07)
[2017-04-24 06:08] VITALS: BP 132/70
--- NOTE | 2017-04-24 08:48 | PM & R (SOAP) Progress Note ---
Subjective Time Seen by Provider: 08:00 Subjective/Events-last exam Patient was seen in her room this AM Contacted by RN last evening re nausea Zofran ordered Patient relates nausea to meds Uncertain feeling beeter this AM Current meds reviewed Hesitant to d/c pain meds aas was doing better with them on board.Patient SBA to CGA for gait with walker Objective Exam Last Set of Vital Signs Vital Signs Date Time Temp Pulse Resp B/P (MAP) Pulse Ox O2 Delivery O2 Flow Rate FiO2 04/24/17 06:08 98.6 87 17 132/70 (90) 96 Room Air Capillary Refill : Less Than 3 Seconds I&O Intake and Output 04/24/17 00:00 Intake Total 1350 ml Balance 1350 ml Intake Oral 1350 ml # Voids 9 # Bowel Movements 1 General: Alert, Oriented X3, Cooperative, No Acute Distress HEENT: Atraumatic, PERRLA, EOMI, Mucous Memb Moist/[place] Neck: Supple Lungs: Clear to Auscultation Heart: Regular Rate Abdomen: Normal Bowel Sounds, Soft, No Tenderness Extremities: No Edema Neuro: Other (Good strength except left hip Sensation and Cognition grossly intact) Assessment/Plan Assessment DJD left hip s/p Left THR DR Burks WBAT Postop anemia on replacement Hypothyroidism on replacement Truncal rash non pruritic Mild pedal edema-rosanna hose on improved Transient nausea-Zofran prn ordered. Plan Continue PT/OT Team Conference held 04-22-17-See report for full functional update and POC and ELOS Discharge set tentatively for 04-28-17 to home with family and HHC Adjust pain meds as needed Treat nausea symptomatically VALENCIA MCKINNEY MD Apr 24, 2017 08:48
[2017-04-24] MEDS: MELOXICAM 7.5 MG (MOBIC) TABLET PO SCH ×2 (10:22→21:33)
[2017-04-24] MEDS: ASPIRIN E.C. 81 MG (ECOTRIN) TAB PO SCH (10:22)
[2017-04-24] MEDS: FERROUS SULF 325 MG (IRON) TAB PO SCH (10:22)
[2017-04-24] MEDS: LACTOBACILLUS Acidoph/Bulgar (LACTINEX/FLORANEX) TAB PO SCH (10:22)
[2017-04-24] MEDS: CALCIUM CARBONATE 500 MG (TUMS) TAB.CHEW PO SCH (10:23)
[2017-04-24] MEDS ORDERED: FUROSEMIDE 40 MG/4 ML INJ (LASIX) IVP NR (11:15)
--- NOTE | 2017-04-24 11:20 | Progress Note-Hospitalist ---
Subjective HPI/CC On Admission Date Seen by Provider: Apr 24, 2017 Time Seen by Provider: 10:45 CC: Medical management following slow recovery after hip replacement surgery HPI: This is an 86-year-old white female who lives in [facility] but her daughter lives in [place] who underwent an uncomplicated elective hip replacement by Dr. Burks at [facility] on 04/15/17. I did see the patient in consultation that Thursday and she had an uncomplicated course except she had slow recovery. Her bowels are moving she is been maintained on her home medication and minimal medication for pain due to delirium that it causes. She did have slight hypotension with orthostasis the day after surgery and her hemoglobin did come back postoperatively low at 8.8 but she was placed on iron is currently doing well. Her primary care providers Dr. Adams in [facility]. Subjective/Events-last exam patient complains of some nausea and little bit of dizziness. S He is having any increased pain in the left leg mostly in the thigh and the lower leg area. she was unable to tolerate the tramadol for her pain. she is sitting up reading the [employer] this morning Review of Systems Cardiovascular: Edema Musculoskeletal: leg pain Objective Exam Vital Signs Vital Sign - Last 12Hours 04/19/17 13:10 Temp 97.1 Pulse 88 Resp 20 B/P (MAP) 97/62 (74) Pulse Ox 98 O2 Delivery Room Air Capillary Refill : Less Than 3 Seconds General Appearance: No Apparent Distress, WD/WN Assessment/Plan Assessment and Plan Assess & Plan/Chief Complaint Slow recovery following uncomplicated hip replacement surgery by Dr. Burks POD # 9 Post operative anemia due to acute blood loss placed on PO iron-this may be the cause of her nausea Hypothyroidism History of diverticulosis status post partial resection in the past Delirium due to pain medication yesterday left leg edema we'll check for DVT since the patient is not on prophylaxis, in addition the patient has some mild tachycardia. We'll give 1 dose of Lasix and begin to elevate the left leg MIKAEL AHMADI MD Apr 24, 2017 11:20
--- NOTE | 2017-04-24 11:55 | Occupational Ther Daily Note ---
OT Current Status-Daily Note Subjective "It's alittle chilly for a bath." Appearance Patient seated in chair bedside bed, wrapped in several blankets and ly when OT entered the room. Agreeable to sponge bath. Mental Status/Objective Patient Orientation: Person, Place, Time, Situation Functional [place] Measure 0=Not Assessed/NA 4=Minimal Assistance 1=Total Assistance 5=Supervision or Setup 2=Maximal Assistance 6=Modified [place] 3=Moderate Assistance 7=Complete [place] ADL-Treatment Ambulated to bathroom with roller walker and SBA to toilet self independently. Washed hands at sink and returned to bed room area to do self care. Agreeable to using bath sponges to clean up this am. Independent with upper body bathing and stood with SBA to do chip area and bottom. Applied lotion. Dressed upper body with clothes brought from closet, independently. Mod assist to use equipment for lower body dressing, i.e. donning underwear and slacks. She remained within the restrictions for hip surgery. She attempted to remove PJ with launch engineer to push clothing off her feet but had mod amount of difficulty in doing so. Used the sock aide to don the slippy socks independently. She is dependent in donning the FRANCISCO hose, thus OT applied. Swelling present on the dorsum of the left foot with some soreness reported. She did not want to put on her shoes. Functional [place] Measure 0=Not Assessed/NA 4=Minimal Assistance 1=Total Assistance 5=Supervision or Setup 2=Maximal Assistance 6=Modified [place] 3=Moderate Assistance 7=Complete IndependenceIRFPAI Quality Coding Scale 6 Independent with activity with or without an assistive device 5 Patient requires set up or clean up by helper. Patient completes activity by themselves 4 Supervision or touching assist (CGA). [place] provide cues , steadying assist 3 The helper provides less than half the effort to complete the activity 2 The helper provides more than half the effort to complete the activity 1 Dependent. The helper does all the effort to complete an activity 7 Patient refused to complete or attempt activity 9 The patient did not perform the activity before the current illness or injury 88 Not attempted due to Medical conditions or safety concerns Education OT Patient Education: Use of adapted equipment Teaching Recipient: Patient Teaching Methods: Demonstration, Discussion Response to Teaching: Verbalize Understanding, Return Demonstration OT Short Term Goals Short Term Goals Time Frame: Apr 27, 2017 Lower Body Dressing(FIM): 5 Toileting(FIM): 5 Toilet/Commode Transfer(FIM): 5 1=Demonstrate adherence to instructed precautions during ADL tasks. 2=Patient will verbalize/demonstrate understanding of assistive devices/ modifications for ADL. 3=Patient will improve strength/tolerance for activity to enable patient to perform ADL's. OT Event Planning Manager Goals Residential Goals Time Frame: May 11, 2017 Eating (FIM): 6 Eating (QC): 6 Groomin Oral Hygiene (QC): 6 Bathing(FIM): 5 Shower/Bathe Self (QC): 5 Upper Body Dressing(FIM): 6 Upper Body Dressing (QC): 6 Lower Body Dressing(FIM): 5 Lower Body Dressing (QC): 5 On/Off Footwear (QC): 5 Toileting(FIM): 6 Toileting Hygiene (QC): 6 Toilet/Commode Transfer(FIM): 6 Toilet/Commode Transfer (QC): 6 Shower Transfer(FIM): 5 Additional Goals: 1-Demonstrate ADL Tasks, 2-Verbalize Understanding, 3- ImproveStrength/Silvina 1=Demonstrate adherence to instructed precautions during ADL tasks. 2=Patient will verbalize/demonstrate understanding of assistive devices/ modifications for ADL. 3=Patient will improve strength/tolerance for activity to enable patient to perform ADL's. OT Education/Plan Discharge Recommendations Plan/Recommendations: Continue POC Treatment Plan/Plan of Care Patient would benefit from OT for education, treatment and training to promote independence in ADL's, mobility, safety and/or upper extremity function for ADL' s. Plan of Care: ADL Retraining, Functional Mobility, Group Exercise/Act as Ind, UE Funct Exercise/Act Treatment Duration: May 11, 2017 Frequency: At least 5 of 7 days/Wk (IRF) Estimated Hrs Per Day: 1.5 hours per day Agreement: Yes Rehab Potential: Good Time/GCodes Start Time: 07:50 Stop Time: 09:00 Total Time Billed (hr/min): 70 Billed Treatment Time Visit, ADL x 4 VIRGINIA MEEK OT Apr 24, 2017 11:55
--- NOTE | 2017-04-24 13:09 | Physical Therapy Daily Note ---
PT Daily Note-Current Subjective Pt. agrees to Rx. States she feels she is making slow steady progress. Pain Numeric Pain Scale: 3 Location: Right Location Body Site: Hip Pain Description: Ache Mental Status Patient Orientation: Normal For Age shoes donned for todays gait to see if this provides better support for feet as pt. c/o toe pain yesterday Transfers Functional [place] Measure 0=Not Assessed/NA 4=Minimal Assistance 1=Total Assistance 5=Supervision or Setup 2=Maximal Assistance 6=Modified [place] 3=Moderate Assistance 7=Complete IndependenceIRFPAI Quality Coding Scale 6 Independent with activity with or without an assistive device 5 Patient requires set up or clean up by helper. Patient completes activity by themselves 4 Supervision or touching assist (CGA). [place] provide cues , steadying assist 3 The helper provides less than half the effort to complete the activity 2 The helper provides more than half the effort to complete the activity 1 Dependent. The helper does all the effort to complete an activity 7 Patient refused to complete or attempt activity 9 The patient did not perform the activity before the current illness or injury 88 Not attempted due to Medical conditions or safety concerns Transfers (B, C, W/C) (FIM): 4 Scootin Rollin Supine to/from Sit: 4 Sit to/from Stand: 5 pt. needed only CGA for LEs in to bed and then did complete indep x 1 this Rx. Weight Bearing Right Lower Extremity: Right Full Weight Bearing Left Lower Extremity: Left Full Weight Bearing Gait Training Does the Patient Walk?: Yes Gait (FIM): 5 Distance (FIM): 3=150 ft (175x2) Gait Level of Assist: 5 Gait Persons Needed: 1 Gait Assistive Device: FWW slow but no LOB, manages FWW well with equal step length Stair Training Stair Training: Handrails/: 2 handrails Stairs (FIM): 5 #of Steps: 4 Stairs: Pattern: Step to Level of Assist: 5 Exercises Supine Ex: Ankle pumps, Quad Set, Glut sets, Heel Slides (assist), Short Arc Quads, Scooting, Hip abd/add (ssist) Supine Reps: 15 Seated Therapy Exercises: Ankle pumps, Sit to stand, Long arc quads Seated Reps: 10 Standing: Hip Abduction, Hamstring curls, Heel/toe raises, Marching Standing Reps: 15 Assessment Current Status: Good Progress progressing well with all aspects of mobility PT Short Term Goals Short Term Goals Time Frame: Apr 27, 2017 Gait (FIM): 5 Gait Distance Comment: 200 feet Gait Level of Assist: 5 Gait Assistive Device: FWW Wheelchair (FIM): 9 Stairs (FIM): 5 # of Steps: 3 Stairs Level of Assist: 5 PT Grocery Packer Goals Grocery Packer Goals PT Correction Goals Time Frame: May 11, 2017 Transfers (B,C,W/C) (FIM): 6 Sit to Lying (QC): 6 Lying-Sitting on Side/Bed(QC): 6 Sit to Stand (QC): 6 Rollin Roll Left to Right (QC): 6 Chair/Shr-rz-Ffqnr Xfer(QC): 6 Car Transfer (QC): 5 Does the Patient Walk: Yes Gait (FIM): 6 Gait distance (FIM): 3=150 ft Distance: 300 feet Walk 10 feet (QC): 6 Walk 10ft-Uneven Surface(QC): 5 Walk 50ft with 2 Turns (QC): 6 Walk 150 ft (QC): 6 Gait Level of Assist: 6 Gait Assistive Device: FWW Does the Pt use WC or Scooter?: No # of Steps: 4 1 Step (curb) (QC): 5 4 Steps (QC): 5 12 Steps (QC): 88 Stairs Level Of Assist: 6 Picking up an Object (QC): 5 PT Plan Treatment/Plan Treatment Plan: Continue Plan of Care Treatment Plan: Bed Mobility, Concurrent Therapy, Education, Functional Activity Silvina, Functional Strength, Group Therapy, Gait, Safety, Therapeutic Exercise, Transfers Treatment Duration: May 11, 2017 Frequency: At least 5 of 7 days/Wk (IRF) Estimated Hrs Per Day: 1.5 hours per day Patient and/or Family Agrees t: Yes Safety Risks/Education Patient Education: Gait Training, Transfer Techniques, Steps, Correct Positioning, Safety Issues Teaching Recipient: Patient Teaching Methods: Demonstration, Discussion Response to Teaching: Verbalize Understanding, Return Demonstration, Reinforcement Needed Time/GCodes Time In: 1110 Time Out: 1210 Total Billed Treatment Time: 60 Total Billed Treatment 1,EX25m,GT15m,FA20m G Codes Necessary: No LAVERNE HENRY DENTAL PRACTICE MANAGER Apr 24, 2017 13:09
--- NOTE | 2017-04-24 14:11 | Diagnostic Imaging Report ---
PROCEDURE: US left lower extremity venous. TECHNIQUE: Multiple real-time grayscale images were obtained over the left lower extremity in various projections. Additional duplex Doppler and color Doppler images were also obtained. INDICATION: Left lower extremity edema and recent surgery. FINDINGS: There is no evidence of a left lower extremity DVT. The left lower extremity venous system demonstrates normal compressibility with normal response to augmentation and Valsalva. No soft tissue fluid collections are identified. There is some edema in the subcutaneous tissues. IMPRESSION: No evidence of left lower extremity DVT. Dictated by: Dictated on workstation # [id number]
[2017-04-24] MEDS ORDERED: FUROSEMIDE 20 MG (LASIX) TAB PO NR (14:15)
--- NOTE | 2017-04-24 14:33 | Therapy Group Daily Note ---
Therapy Daily Group Note Exercises Balance (dynamic seated balance), Other Other/Notes Patient participated in group therapy in the common area of rehab. Patient ambulated SBA with FWW to the common area of rehab and placed at a table with the other patients. Each patient then had to introduce themselves, state where they were born and the funniest prank they ever played on someone or was played on them. Patient participated in the discussion and problem solving and socialization were encouraged with game play. After group therapy patient ambulated back to her room and placed in chair with call light and tray. Start Time: 13:00 Stop Time: 14:10 Total Billed Treatment Time: 70 Total Billed Treatment 1 visit GRP 70 min KENDRA COLEMAN PT Apr 24, 2017 14:33
[2017-04-24 17:50] VITALS: BP 117/68
[2017-04-25 05:27] VITALS: BP 137/75
[2017-04-25] MEDS: MULTIVIT W/MINERALS TAB (THERAGRAN M) PO SCH (05:54)
[2017-04-25] MEDS: LEVOTHYROXINE 50 MCG (LEVOTHROID) TAB PO SCH (05:55)
[2017-04-25] MEDS: PANTOPRAZOLE 40 MG (PROTONIX) TAB PO SCH (05:55)
[2017-04-25] MEDS: ACETAMINOPHEN 500 MG TAB (TYLENOL) PO PRN ×2 (07:35→20:52)
[2017-04-25] MEDS: CALCIUM CARBONATE 500 MG (TUMS) TAB.CHEW PO SCH (08:50)
[2017-04-25] MEDS: LACTOBACILLUS Acidoph/Bulgar (LACTINEX/FLORANEX) TAB PO SCH (08:50)
[2017-04-25] MEDS: MELOXICAM 7.5 MG (MOBIC) TABLET PO SCH ×2 (08:50→20:52)
[2017-04-25] MEDS: ASPIRIN E.C. 81 MG (ECOTRIN) TAB PO SCH (08:50)
--- NOTE | 2017-04-25 10:06 | Physical Therapy Daily Note ---
PT Daily Note-Current Subjective Patient in recliner pre tx, agrees to PT, has 6-7/10 pain in left leg. Appearance Patient sitting on toilet post tx with nurse call, instructed to call nurse when she is done. Mental Status Patient Orientation: Person, Place, Situation Transfers Functional [place] Measure 0=Not Assessed/NA 4=Minimal Assistance 1=Total Assistance 5=Supervision or Setup 2=Maximal Assistance 6=Modified [place] 3=Moderate Assistance 7=Complete IndependenceIRFPAI Quality Coding Scale 6 Independent with activity with or without an assistive device 5 Patient requires set up or clean up by helper. Patient completes activity by themselves 4 Supervision or touching assist (CGA). [place] provide cues , steadying assist 3 The helper provides less than half the effort to complete the activity 2 The helper provides more than half the effort to complete the activity 1 Dependent. The helper does all the effort to complete an activity 7 Patient refused to complete or attempt activity 9 The patient did not perform the activity before the current illness or injury 88 Not attempted due to Medical conditions or safety concerns Transfers (B, C, W/C) (FIM): 5 Sit to/from Stand: 5 Weight Bearing Right Lower Extremity: Right Full Weight Bearing Left Lower Extremity: Left Full Weight Bearing Gait Training Gait (FIM): 5 Distance: 150'x2 Gait Level of Assist: 5 Gait Persons Needed: 1 Gait Assistive Device: FWW slow, antalgic Exercises NuStep Minutes: 10 NuStep Workload: 1 (primarily for hip ROM) Treatments transfers, ambulation, ROM Assessment Current Status: Fair Progress SBA with both transfers and ambulation PT Short Term Goals Short Term Goals Time Frame: Apr 27, 2017 Gait (FIM): 5 Gait Distance Comment: 200 feet Gait Level of Assist: 5 Gait Assistive Device: FWW Wheelchair (FIM): 9 Stairs (FIM): 5 # of Steps: 3 Stairs Level of Assist: 5 PT Correction Goals Clinical Social Work Therapist Goals PT Correction Goals Time Frame: May 11, 2017 Transfers (B,C,W/C) (FIM): 6 Sit to Lying (QC): 6 Lying-Sitting on Side/Bed(QC): 6 Sit to Stand (QC): 6 Rollin Roll Left to Right (QC): 6 Chair/Wqv-ud-Ghtoh Xfer(QC): 6 Car Transfer (QC): 5 Does the Patient Walk: Yes Gait (FIM): 6 Gait distance (FIM): 3=150 ft Distance: 300 feet Walk 10 feet (QC): 6 Walk 10ft-Uneven Surface(QC): 5 Walk 50ft with 2 Turns (QC): 6 Walk 150 ft (QC): 6 Gait Level of Assist: 6 Gait Assistive Device: FWW Does the Pt use WC or Scooter?: No # of Steps: 4 1 Step (curb) (QC): 5 4 Steps (QC): 5 12 Steps (QC): 88 Stairs Level Of Assist: 6 Picking up an Object (QC): 5 PT Plan Problem List Problem List: Activity Tolerance, Functional Strength, Safety, Balance, Gait, Transfer, Bed Mobility, ROM Treatment/Plan Treatment Plan: Continue Plan of Care Treatment Plan: Bed Mobility, Concurrent Therapy, Education, Functional Activity Silvina, Functional Strength, Group Therapy, Gait, Safety, Therapeutic Exercise, Transfers Treatment Duration: May 11, 2017 Frequency: At least 5 of 7 days/Wk (IRF) Estimated Hrs Per Day: 1.5 hours per day Patient and/or Family Agrees t: Yes Safety Risks/Education Patient Education: Gait Training, Transfer Techniques, Correct Positioning, Safety Issues Teaching Recipient: Patient Teaching Methods: Demonstration, Discussion Response to Teaching: Reinforcement Needed Time/GCodes Time In: 930 Time Out: 1000 Total Billed Treatment Time: 30 Total Billed Treatment 1 visit EX 10' GT 20' DAVID RABAGO PT Apr 25, 2017 10:06
[2017-04-25 18:31] VITALS: BP 102/63
[2017-04-25] MEDS: DOCUSATE SODIUM 100 MG (COLACE) CAP PO PRN (21:25)
[2017-04-26 05:25] VITALS: BP 141/76
[2017-04-26] MEDS: MULTIVIT W/MINERALS TAB (THERAGRAN M) PO SCH (06:06)
[2017-04-26] MEDS: PANTOPRAZOLE 40 MG (PROTONIX) TAB PO SCH (06:07)
[2017-04-26] MEDS: LEVOTHYROXINE 50 MCG (LEVOTHROID) TAB PO SCH (06:07)
[2017-04-26] MEDS: ACETAMINOPHEN 500 MG TAB (TYLENOL) PO PRN ×2 (06:07→20:21)
[2017-04-26] MEDS: CALCIUM CARBONATE 500 MG (TUMS) TAB.CHEW PO SCH (07:29)
[2017-04-26] MEDS: MELOXICAM 7.5 MG (MOBIC) TABLET PO SCH ×2 (08:15→20:21)
[2017-04-26] MEDS: LACTOBACILLUS Acidoph/Bulgar (LACTINEX/FLORANEX) TAB PO SCH (08:15)
[2017-04-26] MEDS: ASPIRIN E.C. 81 MG (ECOTRIN) TAB PO SCH (08:16)
[2017-04-26 18:00] VITALS: BP 134/68
[2017-04-26] MEDS: DOCUSATE SODIUM 100 MG (COLACE) CAP PO PRN (20:21)
[2017-04-27 05:09] VITALS: BP 149/79
[2017-04-27] MEDS: MULTIVIT W/MINERALS TAB (THERAGRAN M) PO SCH (05:28)
[2017-04-27] MEDS: LEVOTHYROXINE 50 MCG (LEVOTHROID) TAB PO SCH (05:28)
[2017-04-27] MEDS: PANTOPRAZOLE 40 MG (PROTONIX) TAB PO SCH (05:28)
[2017-04-27] MEDS: CALCIUM CARBONATE 500 MG (TUMS) TAB.CHEW PO SCH (07:42)
[2017-04-27] MEDS: MELOXICAM 7.5 MG (MOBIC) TABLET PO SCH ×2 (07:42→21:08)
[2017-04-27] MEDS: LACTOBACILLUS Acidoph/Bulgar (LACTINEX/FLORANEX) TAB PO SCH (07:42)
[2017-04-27] MEDS: ACETAMINOPHEN 500 MG TAB (TYLENOL) PO PRN ×2 (07:42→21:09)
[2017-04-27] MEDS: FERROUS SULF 325 MG (IRON) TAB PO SCH (07:42)
[2017-04-27] MEDS: ASPIRIN E.C. 81 MG (ECOTRIN) TAB PO SCH (07:43)
[2017-04-27 11:17] LABS: BASOPHILS % (AUTO) 0 % (0-10); EOSINOPHILS # (AUTO) 0.1 10^3/uL (0.0-0.3); EOSINOPHILS % (AUTO) 2 % (0-10); LYMPHOCYTES # (AUTO) 1.5 X 10^3 (1.0-4.0); LYMPHOCYTES % (AUTO) 19 % (12-44); MEAN CORPUSCULAR HGB CONC 34 G/DL (32-36); MEAN CORPUSCULAR VOLUME 98 FL (80-99); MEAN PLATELET VOLUME 8.7 FL (7.4-10.4); MONOCYTES # (AUTO) 0.9 X 10^3 (0.0-1.0); MONOCYTES % (AUTO) 11 % (0-12); NEUTROPHILS # (AUTO) 5.4 X 10^3 (1.8-7.8); NEUTROPHILS % (AUTO) 68 % (42-75); RED CELL DISTRIBUTION WIDTH 14.6 % (10.0-14.5)
[2017-04-27 11:18] LABS: HEMOGLOBIN 8.9 G/DL (11.5-16.0); MEAN CORPUSCULAR HEMOGLOBIN 34 PG (25-34); RED BLOOD COUNT 2.63 10^6/uL (4.35-5.85); WHITE BLOOD COUNT 8.8 10^3/uL (4.3-11.0)
[2017-04-27 11:19] LABS: HEMATOCRIT 26 % (35-52); PLATELET COUNT 342 10^3/uL (130-400)
--- NOTE | 2017-04-27 12:07 | Physical Therapy Daily Note ---
PT Daily Note-Current Subjective Pts. dtr who she will DC with is present and wants to be trained in how to care for her Mother at home. Pain Numeric Pain Scale: 2 Location: Left Location Body Site: Hip Pain Description: Pressure Mental Status Patient Orientation: Normal For Age Transfers Functional [place] Measure 0=Not Assessed/NA 4=Minimal Assistance 1=Total Assistance 5=Supervision or Setup 2=Maximal Assistance 6=Modified [place] 3=Moderate Assistance 7=Complete IndependenceIRFPAI Quality Coding Scale 6 Independent with activity with or without an assistive device 5 Patient requires set up or clean up by helper. Patient completes activity by themselves 4 Supervision or touching assist (CGA). [place] provide cues , steadying assist 3 The helper provides less than half the effort to complete the activity 2 The helper provides more than half the effort to complete the activity 1 Dependent. The helper does all the effort to complete an activity 7 Patient refused to complete or attempt activity 9 The patient did not perform the activity before the current illness or injury 88 Not attempted due to Medical conditions or safety concerns Transfers (B, C, W/C) (FIM): 5 Scootin Rollin Roll Left to Right (QC): 6 Supine to/from Sit: 5 Sit to/from Stand: 6 Sit to Lying (QC): 6 Sit to Stand (QC): 6 Chair/Jfq-vu-Fxerg Xfer(QC): 6 Bed to/from Chair: 6 Car Transfer (QC): 5 pt. needs occas cues for technique in out bed. Weight Bearing Right Lower Extremity: Right Full Weight Bearing Left Lower Extremity: Left Full Weight Bearing Gait Training Does the Patient Walk?: Yes Gait (FIM): 6 Distance (FIM): 3=150 ft (x2) Walk 10 feet (QC): 6 Walk 50 ft with 2 Turns(QC): 6 Walk 150 ft (QC): 6 Walking 10ft/uneven surface-QC: 6 Gait Level of Assist: 6 Gait Persons Needed: 0 Gait Assistive Device: FWW introduced to [facility] this date, walked 25 ft with min assist and instruction Wheelchair Training Does the Pt Use a Wheelchair?: No Stair Training Stair Training: Handrails/: 1 handrail Stairs (FIM): 5 #of Steps: 12 1 Step (curb) (QC): 5 4 Steps (QC): 5 12 Steps (QC): 5 Stairs: Pattern: Step to Level of Assist: 5 dtr present , pt using one rail like home situation Exercises Supine Ex: Ankle pumps, Quad Set, Rolling, Glut sets, Heel Slides, Short Arc Quads, Scooting, Straight leg raise, Hip abd/add Supine Reps: 12 Seated Therapy Exercises: Ankle pumps, Sit to stand, Long arc quads Seated Reps: 10 Treatments pts bed at dtrs home 27 in off floor, pt. did this in gym an mat with some effort Assessment Current Status: Good Progress up ad raymond status PT Short Term Goals Short Term Goals Time Frame: Apr 27, 2017 Gait (FIM): 5 Gait Distance Comment: 200 feet Gait Level of Assist: 5 Gait Assistive Device: FWW Wheelchair (FIM): 9 Stairs (FIM): 5 # of Steps: 3 Stairs Level of Assist: 5 PT Clinical Program Director Goals Clinical Program Director Goals PT [facility] Goals Time Frame: May 11, 2017 Transfers (B,C,W/C) (FIM): 6 Sit to Lying (QC): 6 Lying-Sitting on Side/Bed(QC): 6 Sit to Stand (QC): 6 Rollin Roll Left to Right (QC): 6 Chair/Txr-uy-Pbnse Xfer(QC): 6 Car Transfer (QC): 5 Does the Patient Walk: Yes Gait (FIM): 6 Gait distance (FIM): 3=150 ft Distance: 300 feet Walk 10 feet (QC): 6 Walk 10ft-Uneven Surface(QC): 5 Walk 50ft with 2 Turns (QC): 6 Walk 150 ft (QC): 6 Gait Level of Assist: 6 Gait Assistive Device: FWW Does the Pt use WC or Scooter?: No # of Steps: 4 1 Step (curb) (QC): 5 4 Steps (QC): 5 12 Steps (QC): 88 Stairs Level Of Assist: 6 Picking up an Object (QC): 5 PT Plan Treatment/Plan Treatment Plan: Continue Plan of Care Treatment Plan: Bed Mobility, Concurrent Therapy, Education, Functional Activity Silv[place], Functional Strength, Group Therapy, Gait, Safety, Therapeutic Exercise, Transfers Treatment Duration: May 11, 2017 Frequency: At least 5 of 7 days/Wk (IRF) Estimated Hrs Per Day: 1.5 hours per day Patient and/or Family Agrees t: Yes Safety Risks/Education Patient Education: Gait Training, Transfer Techniques, Steps, Issued Written HEP, Correct Positioning, Instructions to Caregiver, Disease Process, Safety Issues Teaching Recipient: Patient, Family Teaching Methods: Demonstration Response to Teaching: Verbalize Understanding, Return Demonstration, Reinforcement Needed Time/GCodes Time In: 1100 Time Out: 1200 Total Billed Treatment Time: 60 Total Billed Treatment 1,FA25m,EX20m,GT15m G Codes Necessary: LAVERNE Bob EYEGLASS INSPECTOR Apr 27, 2017 12:07
--- NOTE | 2017-04-27 12:36 | Occupational Ther Daily Note ---
OT Current Status-Daily Note Subjective Pt sitting in chair, agrees to treatment. Pt reports 4/10 pain in left hip Mental Status/Objective Functional [place] Measure 0=Not Assessed/NA 4=Minimal Assistance 1=Total Assistance 5=Supervision or Setup 2=Maximal Assistance 6=Modified [place] 3=Moderate Assistance 7=Complete [place] ADL-Treatment Pt sit to stand with modified independence. Pt retrieved clothing from closet with FWW with SBA. To restroom with FWW. Pt transferred to [facility] over toilet with modified independence. Pt able to complete toileting hygiene and clothing management with modified independence. Pt doffed shirt without assistance, used dressing stick to doff lower body clothing. Transfer to walk in shower with SBA. Seated bathing completed using hand held shower. Pt able to wash/dry all areas after set up. Uses long handled sponge for lower legs and feet. Don pullover shirt with set up. Pt required assist to don FRANCISCO hose. Used dog races manager to start underwear and pants over feet. Stood with good balance during pant hike. Pt donned socks with verbal cues using sock aid. Pt stood at sink to brush hair with modified independence. Pt states she has already brushed teeth this morning without assistance. Pt requested to walk in hallway so she doesn't become stiff. Pt performs gait with FWW, no LOB noted. Plan is for pt to d/c to daughter's home tomorrow. Pt has no questions or concerns at this time. Pt requests to sit on toilet after session, pull cord in reach. Functional [place] Measure 0=Not Assessed/NA 4=Minimal Assistance 1=Total Assistance 5=Supervision or Setup 2=Maximal Assistance 6=Modified [place] 3=Moderate Assistance 7=Complete IndependenceIRFPAI Quality Coding Scale 6 Independent with activity with or without an assistive device 5 Patient requires set up or clean up by helper. Patient completes activity by themselves 4 Supervision or touching assist (CGA). [place] provide cues , steadying assist 3 The helper provides less than half the effort to complete the activity 2 The helper provides more than half the effort to complete the activity 1 Dependent. The helper does all the effort to complete an activity 7 Patient refused to complete or attempt activity 9 The patient did not perform the activity before the current illness or injury 88 Not attempted due to Medical conditions or safety concerns Eating (FIM): 7 (Pt reports feeding self, cutting food, and managing containers without assistance) Eating (QC): 6 Grooming (FIM): 6 Oral Hygiene (QC): 6 Bathing (FIM): 5 Shower/Bathe Self (QC): 5 Upper Body (FIM): 5 Upper Body Dressing (QC): 5 Lower Body Dressing (FIM): 5 Lower Body Dressing (QC): 5 On/Off Footwear (QC): 4 Toileting (FIM): 6 Toileting Hygiene (QC): 6 Toilet/Commode Transfer (FIM): 6 Toilet Transfer (QC): 6 Shower Transfer(FIM): 5 OT Short Term Goals Short Term Goals Time Frame: Apr 27, 2017 Lower Body Dressing(FIM): 5 Toileting(FIM): 5 Toilet/Commode Transfer(FIM): 5 1=Demonstrate adherence to instructed precautions during ADL tasks. 2=Patient will verbalize/demonstrate understanding of assistive devices/ modifications for ADL. 3=Patient will improve strength/tolerance for activity to enable patient to perform ADL's. OT It Sales Representative Goals Alf Goals Time Frame: May 11, 2017 Eating (FIM): 6 (met) Eating (QC): 6 (6-MET) Groomin (met 04/27/17) Oral Hygiene (QC): 6 (6-MET) Bathing(FIM): 5 (met 04/27/17) Shower/Bathe Self (QC): 5 (5-MET) Upper Body Dressing(FIM): 6 (not met) Upper Body Dressing (QC): 6 (5-not met) Lower Body Dressing(FIM): 5 (met 04/27/17) Lower Body Dressing (QC): 5 (5-MET) On/Off Footwear (QC): 5 (4-not met) Toileting(FIM): 6 (met 04/27/17) Toileting Hygiene (QC): 6 (6-MET) Toilet/Commode Transfer(FIM): 6 (met 04/27/17) Toilet/Commode Transfer (QC): 6 (6-MET) Shower Transfer(FIM): 5 (met 04/27/17) Additional Goals: 1-Demonstrate ADL Tasks, 2-Verbalize Understanding, 3- ImproveStrength/Silv[place] 1=Demonstrate adherence to instructed precautions during ADL tasks. 2=Patient will verbalize/demonstrate understanding of assistive devices/ modifications for ADL. 3=Patient will improve strength/tolerance for activity to enable patient to perform ADL's. OT Education/Plan Discharge Recommendations Plan/Recommendations: Continue POC Treatment Plan/Plan of Care Patient would benefit from OT for education, treatment and training to promote independence in ADL's, mobility, safety and/or upper extremity function for ADL' s. Plan of Care: ADL Retraining, Functional Mobility, Group Exercise/Act as Ind, UE Funct Exercise/Act Treatment Duration: May 11, 2017 Frequency: At least 5 of 7 days/Wk (IRF) Estimated Hrs Per Day: 1.5 hours per day Agreement: Yes Rehab Potential: Good Time/GCodes Start Time: 08:00 Stop Time: 09:00 Total Time Billed (hr/min): 60 Billed Treatment Time 1 visit, ADLx4(60minutes) FIDELINA NAVARRO OT Apr 27, 2017 12:36
--- NOTE | 2017-04-27 12:59 | Progress Note-Hospitalist ---
Standard Progress Note Progress Notes/Assess & Plan Date Seen 04/27/17 Time Seen by Provider: 12:56 Diagnosis Assessment: Slow recovery following uncomplicated hip replacement surgery by Dr. Burks POD # 4 Post operative anemia due to acute blood loss placed on PO iron Hypothyroidism History of diverticulosis status post partial resection in the past Delirium due to pain medication yesterday Assess & Plan/Chief Complaint The patient is a charming 86-year-old white female on rehabilitation after hip replacement. She is alert and oriented. She allows that this rehabilitation is one of the more difficult things that she has ever done. She has a history of anemia. We were able to find a hemoglobin of 9 from the surgical facility. Repeat study today is 8.9 and therefore stable. She has been taking iron for some time but found it to cause her constipation. Physical exam: She is alert and oriented. Lungs are clear to auscultation. CV is regular without murmur. Extremities show 1-2+ pedal edema. She has had problems with venous stasis edema before and has fitted compression stockings. Impression: Status post hip replacement. 2.chronic anemia. 3.venous stasis edema Labs Laboratory Tests 04/27/17 11:10 JOSELUIS FORMAN MD Apr 27, 2017 12:59
--- NOTE | 2017-04-27 14:38 | Therapy Group Daily Note ---
Therapy Daily Group Note Patient Education Topic Other List Below (proper handwashing, flu vaccine info ) Exercises LE Seated Exercise, UE Exercise Other/Notes Pt. participated in group PT OT session this date. Pt. came to and from via ambulation with FWW up ad raymond. Pt. very much enjoyed socializing and sharing her name, home town and favorite winter activity; hers [place] with brothers and friends. Proper Handwashing was demonstrated to all patients and they were given opportunity to either stand if they were possible or use merchandise stocker . This Pt. used hand merchandise stocker with independence. Education regarding flu vaccine and disease prevention was discussed. Pts participated in seated U&L extremity ther ex as well as eye and breathing exercises. Pt. to room ruma . Alberts at hand, needs met. Start Time: 13:00 Stop Time: 14:10 Total Billed Treatment Time: 70 Total Billed Treatment 1,GRP LAVERNE HENRY [employer] MANAGER [employer]OTECTION Apr 27, 2017 14:38
--- NOTE | 2017-04-27 18:14 | PM & R (SOAP) Progress Note ---
Subjective Time Seen by Provider: 18:00 Subjective/Events-last exam Patient was seen in her room this evening Patient SBA for transfers Progressing well with therapies Objective Exam Last Set of Vital Signs Vital Signs Date Time Temp Pulse Resp B/P (MAP) Pulse Ox O2 Delivery O2 Flow Rate FiO2 04/27/17 09:00 Room Air 04/27/17 05:09 98.9 92 20 149/79 (102) 96 Capillary Refill : Less Than 3 Seconds I&O Intake and Output 04/27/17 00:00 Intake Total 1725 ml Balance 1725 ml Intake Oral 1725 ml # Voids 9 # Bowel Movements 1 General: Alert, Oriented X3, Cooperative, No Acute Distress HEENT: Atraumatic, PERRLA, EOMI, Mucous Memb Moist/[place] Neck: Supple Lungs: Clear to Auscultation Heart: Regular Rate Abdomen: Normal Bowel Sounds, Soft, No Tenderness Extremities: No Edema Neuro: Other (Good strength except left hip Sensation and Cognition grossly intact) Results Lab Laboratory Tests 04/27/17 11:10: White Blood Count 8.8, Red Blood Count 2.63L, Hemoglobin 8.9L, Hematocrit 26L, Mean Corpuscular Volume 98, Mean Corpuscular Hemoglobin 34, Mean Corpuscular Hemoglobin Concent 34, Red Cell Distribution Width 14.6H, Platelet Count 342, Mean Platelet Volume 8.7, Neutrophils (%) (Auto) 68, Lymphocytes (%) (Auto) 19, Monocytes (%) (Auto) 11, Eosinophils (%) (Auto) 2, Basophils (%) (Auto) 0, Neutrophils # (Auto) 5.4, Lymphocytes # (Auto) 1.5, Monocytes # (Auto) 0.9, Eosinophils # (Auto) 0.1, Basophils # (Auto) 0.0 Assessment/Plan Assessment DJD left hip s/p Left THR DR Burks WBAT Postop anemia on replacement Hypothyroidism on replacement Truncal rash non pruritic-resolved Mild pedal edema-rosanna hose on improved Transient nausea-Zofran prn ordered.-resolved Plan Continue PT/OT Discharge remains set for tomorrow to her daughters home with C F/U with VALENCIA Funes MD Apr 27, 2017 18:14
[2017-04-27 18:22] VITALS: BP 151/74
[2017-04-27] MEDS ORDERED: ACET-77 PO (20:56)
[2017-04-27] MEDS ORDERED: PANT40TA3 PO (20:56)
[2017-04-27] MEDS ORDERED: MELO7.5T46 PO (20:56)
[2017-04-28 05:23] VITALS: BP 154/71
[2017-04-28] MEDS: LEVOTHYROXINE 50 MCG (LEVOTHROID) TAB PO SCH (06:26)
[2017-04-28] MEDS: MULTIVIT W/MINERALS TAB (THERAGRAN M) PO SCH (06:26)
[2017-04-28] MEDS: PANTOPRAZOLE 40 MG (PROTONIX) TAB PO SCH (06:26)
--- NOTE | 2017-04-28 08:17 | PM & R (SOAP) Progress Note ---
Subjective Time Seen by Provider: 07:45 Subjective/Events-last exam Patient was seen in her room this AM All set for discharge to home today with her daughter Objective Exam Last Set of Vital Signs Vital Signs Date Time Temp Pulse Resp B/P (MAP) Pulse Ox O2 Delivery O2 Flow Rate FiO2 04/28/17 05:23 98.2 91 20 154/71 (98) 95 Room Air Capillary Refill : Less Than 3 Seconds I&O Intake and Output 04/28/17 00:00 Intake Total 1400 ml Balance 1400 ml Intake Oral 1400 ml # Voids 15 # Bowel Movements 1 General: Alert, Oriented X3, Cooperative, No Acute Distress HEENT: Atraumatic, PERRLA, EOMI, Mucous Memb Moist/[place] Neck: Supple Lungs: Clear to Auscultation Heart: Regular Rate Abdomen: Normal Bowel Sounds, Soft, No Tenderness Extremities: No Edema Neuro: Other (Good strength except left hip Sensation and Cognition grossly intact) Results Lab Laboratory Tests 04/27/17 11:10: White Blood Count 8.8, Red Blood Count 2.63L, Hemoglobin 8.9L, Hematocrit 26L, Mean Corpuscular Volume 98, Mean Corpuscular Hemoglobin 34, Mean Corpuscular Hemoglobin Concent 34, Red Cell Distribution Width 14.6H, Platelet Count 342, Mean Platelet Volume 8.7, Neutrophils (%) (Auto) 68, Lymphocytes (%) (Auto) 19, Monocytes (%) (Auto) 11, Eosinophils (%) (Auto) 2, Basophils (%) (Auto) 0, Neutrophils # (Auto) 5.4, Lymphocytes # (Auto) 1.5, Monocytes # (Auto) 0.9, Eosinophils # (Auto) 0.1, Basophils # (Auto) 0.0 Assessment/Plan Assessment DJD left hip s/p Left THR DR Burks WBAT Postop anemia on replacement Hypothyroidism on replacement Truncal rash non pruritic-resolved Mild pedal edema-rosanna hose on improved Transient nausea-Zofran prn ordered.-resolved Plan Discharge remains set for today to her daughters home with [facility] F/U with Ortho Dr Burks Current meds reviewed See orders. VALENCIA MCKINNEY MD Apr 28, 2017 08:17
[2017-04-28] MEDS: LACTOBACILLUS Acidoph/Bulgar (LACTINEX/FLORANEX) TAB PO SCH (09:01)
[2017-04-28] MEDS: MELOXICAM 7.5 MG (MOBIC) TABLET PO SCH (09:01)
[2017-04-28] MEDS: ASPIRIN E.C. 81 MG (ECOTRIN) TAB PO SCH (09:01)
[2017-04-28] MEDS: ACETAMINOPHEN 500 MG TAB (TYLENOL) PO PRN (09:01)
[2017-04-28] MEDS: CALCIUM CARBONATE 500 MG (TUMS) TAB.CHEW PO SCH (09:02)
[2017-04-28] MEDS: DOCUSATE SODIUM 100 MG (COLACE) CAP PO PRN (09:09)
--- NOTE | 2017-04-28 09:40 | Therapy Team Discharge Summary ---
Therapy Discharge Summary Discharge Recommendations Date of Discharge Therapy D/C Recommendations: Home w/ Family Support, Occupational Therapy Home Care Physical Therapy Patient came to rehab following a left EMILY. Upon evaluation patient performed bed mobility with min assist, transfers with min to mod assist, ambulated 200' with a rolling walker with CGA/Kelsie (including 10' over an uneven surface and 50 ' with at least 2 turns of 90 degrees), and could go up and down 1 step using a rolling walker with CGA/Kelsie. Patient has been performing bed mobility and transfer training, balance and endurance training, functional strengthening, stair training, gait training, and education. Patient has made good progress and has met all of her snf goals. Now, patient performs bed mobility and transfers with mod I, ambulates 150' with a rolling walker with mod I ( including 10' over an uneven surface and 50' with at least 2 turns of 90 degrees ), can perform a car transfer with SBA, and can go up and down 12 steps using 1 handrail with SBA. Patient is being discharged from this facility today and will be discharged from PT at this time. Occupational Therapy Decreased Activ Tolerance, Impaired I ADL's, Impaired Self-Care Skills PT Group Home Goals Group Home Goals PT Sheet Rock Layer Goals Time Frame: May 11, 2017 Transfers (B,C,W/C) (FIM): 6 Roll Left to Right (QC): 6 Sit to Lying (QC): 6 Lying-Sitting on Side/Bed(QC): 6 Sit to Stand (QC): 6 Chair/Hfu-zy-Umlkg Xfer(QC): 6 Car Transfer (QC): 5 Does the Patient Walk: Yes Gait (FIM): 6 Gait distance (FIM): 3=150 ft Distance: 300 feet Walk 10 feet (QC): 6 Walk 10ft-Uneven Surface(QC): 5 Walk 50ft with 2 Turns (QC): 6 Walk 150 ft (QC): 6 Gait Level of Assist: 6 Gait Assistive Device: FWW Does the Pt use WC or Scooter?: No # of Steps: 4 1 Step (curb) (QC): 5 4 Steps (QC): 5 12 Steps (QC): 88 Stairs Level Of Assist: 6 Picking up an Object (QC): 5 OT Sheet Rock Layer Goals Group Home Goals Time Frame: May 11, 2017 Eating (FIM): 6 (met) Eating (QC): 6 (6-MET) Oral Hygiene (QC): 6 (6-MET) Grooming(FIM): 6 (met 04/27/17) Bathing(FIM): 5 (met 04/27/17) Shower/Bathe Self (QC): 5 (5-MET) Upper Body Dressing(FIM): 6 (not met) Upper Body Dressing (QC): 6 (5-not met) Lower Body Dressing(FIM): 5 (met 04/27/17) Lower Body Dressing (QC): 5 (5-MET) On/Off Footwear (QC): 5 (4-not met) Toileting(FIM): 6 (met 04/27/17) Toileting Hygiene (QC): 6 (6-MET) Toilet/Commode Transfer(FIM): 6 (met 04/27/17) Toilet/Commode Transfer (QC): 6 (6-MET) Shower Transfer(FIM): 5 (met 04/27/17) Additional Goals: 1-Demonstrate ADL Tasks, 2-Verbalize Understanding, 3- ImproveStrength/Silvina 1=Demonstrate adherence to instructed precautions during ADL tasks. 2=Patient will verbalize/demonstrate understanding of assistive devices/ modifications for ADL. 3=Patient will improve strength/tolerance for activity to enable patient to perform ADL's. DAVID RABAGO PT Apr 28, 2017 09:40
[2017-04-28 11:27] VITALS: BP 154/71
--- NOTE | 2017-04-28 14:11 | Therapy Team Discharge Summary ---
Therapy Discharge Summary Discharge Recommendations Date of Discharge Apr 28, 2017 at 10:40 Therapy D/C Recommendations: Home w/ Family Support, Occupational Therapy Home Care Occupational Therapy Pt admitted to ARU following elective left EMILY. On admission pt required min assist with bathing and transfers, and mod assist with LE dressing. Skilled OT intervention focused on ADL training, transfers, strengthening, adaptive equipment training, and home safety education. Pt made good progress with therapy and by discharge is completing toilet transfer, toileting, and grooming with modified independence; bathing and dressing with set up and shower transfer with SBA. Pt did not meet UE dressing goal, but met all other OT LTG. Pt discharging to daughter's home with support this date. D/c ARU OT at this time. Decreased Activ Tolerance, Impaired I ADL's, Impaired Self-Care Skills PT Skilled Nursing Goals Offline Cutter Goals PT Skilled Nursing Goals Time Frame: May 11, 2017 Transfers (B,C,W/C) (FIM): 6 Roll Left to Right (QC): 6 Sit to Lying (QC): 6 Lying-Sitting on Side/Bed(QC): 6 Sit to Stand (QC): 6 Chair/Rli-cy-Pkgxl Xfer(QC): 6 Car Transfer (QC): 5 Does the Patient Walk: Yes Gait (FIM): 6 Gait distance (FIM): 3=150 ft Distance: 300 feet Walk 10 feet (QC): 6 Walk 10ft-Uneven Surface(QC): 5 Walk 50ft with 2 Turns (QC): 6 Walk 150 ft (QC): 6 Gait Level of Assist: 6 Gait Assistive Device: FWW Does the Pt use WC or Scooter?: No # of Steps: 4 1 Step (curb) (QC): 5 4 Steps (QC): 5 12 Steps (QC): 88 Stairs Level Of Assist: 6 Picking up an Object (QC): 5 OT Skilled Nursing Goals Skilled Nursing Goals Time Frame: May 11, 2017 Eating (FIM): 6 (met) Eating (QC): 6 (6-MET) Oral Hygiene (QC): 6 (6-MET) Grooming(FIM): 6 (met 04/27/17) Bathing(FIM): 5 (met 04/27/17) Shower/Bathe Self (QC): 5 (5-MET) Upper Body Dressing(FIM): 6 (not met) Upper Body Dressing (QC): 6 (5-not met) Lower Body Dressing(FIM): 5 (met 04/27/17) Lower Body Dressing (QC): 5 (5-MET) On/Off Footwear (QC): 5 (4-not met) Toileting(FIM): 6 (met 04/27/17) Toileting Hygiene (QC): 6 (6-MET) Toilet/Commode Transfer(FIM): 6 (met 04/27/17) Toilet/Commode Transfer (QC): 6 (6-MET) Shower Transfer(FIM): 5 (met 04/27/17) Additional Goals: 1-Demonstrate ADL Tasks, 2-Verbalize Understanding, 3- ImproveStrength/Silvina 1=Demonstrate adherence to instructed precautions during ADL tasks. 2=Patient will verbalize/demonstrate understanding of assistive devices/ modifications for ADL. 3=Patient will improve strength/tolerance for activity to enable patient to perform ADL's. FIDELINA NAVARRO OT Apr 28, 2017 14:11
--- NOTE | 2017-04-29 01:44 | DISCHARGE SUMMARY ---
DATE OF SERVICE: HISTORY OF PRESENT ILLNESS: The patient is an 86-year-old female who lives in [place], [place], but had a left total hip replacement for painful DJD refractory to conservative care with Dr. Burks at [facility] on 04/15/2017, so as to be near her daughter who lives in [place]. She has stairs in her apartment in [place] and decided to have surgery here. Postoperatively, she progressed slowly. She had slight hypotension and orthostasis and some confusion, mild postoperative anemia. She was placed on iron replacement. She was referred to inpatient rehabilitation at [facility]. She had been independent prior to this. PAST MEDICAL HISTORY: Hypothyroidism, arthritis, venous stasis edema, has compression hose at home. She is a . She had been independent prior to this. MEDICAL COURSE: The patient was followed by Dr. Salas and hospitalist service while on rehab unit. She was concerned about her peripheral edema. She was provided with RANDALL hose. She was assessed by who ordered a Doppler left lower limb, which was negative for DVT. The patient had dose of furosemide with good results. She was afebrile during her stay. On 04/28/2017, her pulse is 91, her respirations 20, blood pressure 154/71, O2 sat 95% on room air. CBC on 04/27/2017 showed WBC 8.8, H and H 8.9/26, platelet count 342 k. REHABILITATION COURSE: She progressed well with her therapy. She had increased strength and endurance. Her incision was healing well. She continued on iron replacement, stool softener and meloxicam as well as Protonix. She is utilizing hydrocodone/APAP for pain control. Speech therapy did assessment upon admission to rehab unit, found to be cognitively intact and they signed off. OT notes upon admission, the patient required min assist with bathing and transfers and mod assist for lower body dressing. The patient made good progress and by discharge was completing toilet transfers, toileting and grooming with modified independence, bathing and dressing with setup and shower transfers, standby assist. Physical therapy notes upon admission, the patient performed bed mobility with min assist, transfers with min to mod assist, could ambulate 200 feet with a wheeled walker with contact guard to min assist. Upon discharge, the patient has made good progress and is modified independent for bed mobility and transfers, modified independent for ambulating 150 feet with a wheeled walker and she can perform a car transfer with standby assist. DISCHARGE INSTRUCTIONS: She is discharged to home with her daughter with home health care. She will follow up with Dr. Burks as per his schedule orthopedics. Continue current diet and Randall hose. The patient's weightbearing as tolerated. DISCHARGE MEDICATIONS: Tylenol 500 mg p.o. q.6 hours p.r.n. mild pain, meloxicam 7.5 mg p.o. b.i.d., Protonix 40 mg p.o. daily, ASA 81 mg p.o. daily, Biotin 1000 mcg p.o. daily, calcium carbonate 1000 mg p.o. daily, cinnamon bark 500 mg p.o. daily, Colace 100 mg p.o. daily, ferrous sulfate mg p.o. 3 times weekly. Probiotic 1 capsule p.o. daily, levothyroxine 50 mcg p.o. daily, fiber laxative 5 mg p.o. daily, multivitamins 1 tablet p.o. daily. DISCHARGE DIAGNOSES: 1. Rehabilitation ambulatory dysfunction secondary to degenerative joint disease of the left hip, status post left total hip replacement at [facility], Dr. Burks 04/15/2017. 2. Postoperative anemia on replacement, improving. 3. Postoperative mild hypotension and orthostasis resolved. 4. Hypothyroidism, on replacement. 5. Truncal rash nonpruritic, which patient related to PENICILLIN resolved. 6. Chronic venous stasis edema improved with support Hose. 7. History of diverticulosis, status post partial resection in the past. 8. Delirium due to pain medication, I improved with adjustment in medication. CONDITION AT DISCHARGE: Improved and stable. PROGNOSIS: Rehab prognosis appears good for continued improvement at home with daughter in home health care. Hopefully, she will be able return to independent living back in [place] or closer to family members soon. Job ID: [id number] DocumentID: [id number] Dictated Date: 04/28/2017 19:01:37 Cheesemaking Laborer Date: 04/29/2017 01:43:46 Dictated By: VALENCIA SALAS MD
== END 2017-04-28 10:40 | disposition home health service (06) | DRG 560 ==
PROVIDERS: ADMIT Physical Medicine & Rehabilitation; ATTEND Physical Medicine & Rehabilitation
DX: Z47.1 Aftercare following joint replacement surgery (principal); Z96.642 Presence of left artificial hip joint; D62 Acute posthemorrhagic anemia; E03.9 Hypothyroidism, unspecified; R21 Rash and other nonspecific skin eruption; I87.8 Other specified disorders of veins; R41.0 Disorientation, unspecified; R11.0 Nausea
CPT/HCPCS: 36415; 85025